=== PATIENT | female | born 1970 | race Caucasian/White ===

== ENCOUNTER 2020-02-09 07:32 | Outpatient (CLI) | payer OTHER, SELFPAY ==
--- NOTE | ~2020-02-09 | MM_ITS ---
EXAMINATION: MM screening jose BI w maryam HISTORY: Screening mammogram TECHNIQUE: Craniocaudal and mediolateral oblique 3-D tomosynthesis images were obtained and synthetic 2-D images were generated. CAD analysis was submitted and interpreted. COMPARISON: 02/06/2019, 02/03/2018, 11/06/2016 bilateral digital screening mammogram examinations BREAST PARENCHYMAL COMPOSITION: There are scattered areas of fibroglandular density. FINDINGS: There is no evidence of suspicious mass, calcification, or architectural distortion to sugg est malignancy in either breast. There has been no suspicious interval change. IMPRESSION: 1. No mammographic evidence of malignancy. 2. Recommend routine screening mammography in one year. BI-RADS Category 1: Negative Reviewed, dictated and finalized at location A.
== END 2020-02-09 07:33 | disposition home or self-care (01) ==
LOC: ANHIMG 07:35
PROVIDERS: PCP Family Medicine; Visit Provider Nurse Practitioner
DX: Z12.31 Encounter for screening mammogram for malignant neoplasm of breast (principal)
CPT/HCPCS: 77063; 77067

== ENCOUNTER 2020-08-12 02:13 | Outpatient (CLI) | payer OTHER, SELFPAY ==
[2020-08-12 18:35] LABS: SARS-CoV-2 RNA PCR Negative
== END 2020-08-12 02:14 | disposition home or self-care (01) ==
LOC: ANHCOVIDDT 02:13
PROVIDERS: PCP Family Medicine; Visit Provider Internal Medicine Gastroenterology
DX: Z01.812 Encounter for preprocedural laboratory examination (principal); Z20.828 Contact with and (suspected) exposure to other viral communicable diseases
CPT/HCPCS: 87635; C9803; U0003

== ENCOUNTER 2020-08-15 00:49 | Day surgery (SDC) | payer OTHER, SELFPAY ==
[2020-08-08 11:01] VITALS: BMI 25.3
[2020-08-15 11:22] VITALS: BP 117/48; PULSE 86; RESP 16; TEMP 36.7; O2SAT 99; BMI 27.8
[2020-08-15] MEDS: LACTATED RINGERS 1,000 ML 150 ML IV CONT (11:42)
--- NOTE | 2020-08-15 12:06 | WPDANESEPPF ---
Anes - Initial Pre Proc Eval Procedure: Operation Date: 08/15/20 12:30 Proposed Procedures p Screening Colonoscopy - Rafael Pisano MD Date/Time: 08/15/20 12:06 Surgeon: Rafael Pisano MD Pre Op Diagnosis: neoplasm screening Patient Data Age: 50 Gender: F Height: 5 ft 5 in Weight: 75.9 kg Last Vital Signs Temp 36.7 C 08/15/20 11:22 Pulse 86 08/15/20 11:22 Resp 16 08/15/20 11:22 BP 117/48 L 08/15/20 11:22 Pulse Ox 99 08/15/20 11:22 Allergies Allergy/AdvReac Type Severity Reaction Status Date / Time Penicillins Allergy Mild Rash Verified 08/15/20 11:21 penicillin V Allergy Unknown Rash Verified 08/15/20 11:21 Home Medications Medication Instructions Recorded Confirmed Type ibuprofen 600 mg tablet 600 mg PO TID 08/07/19 08/15/20 History albuterol sulfate 90 mcg/actuation 2 inhalation INHALATION Q4-6H PRN 11/17/19 08/08/20 Rx aerosol inhaler #8.5 gm sumatriptan succinate 100 mg tablet 100 mg PO ONCE #20 tablet 06/28/20 08/15/20 Rx sodium,potassium,mag sulfates 17.5 354 ml PO .COMPLEX #354 ml 07/09/20 08/08/20 Rx gram-3.13 gram-1.6 gram oral soln bqnlioq-avhmwbttmgopz-ltdydmar 1 tablet PO Q4-6H PRN 08/08/20 08/15/20 History [Excedrin Extra Strength] bisacodyl 5 mg PO ONCE 08/08/20 08/15/20 History phenazopyridine 200 mg PO DAILY PRN 08/08/20 08/08/20 History Patient hx anesthesia problems: none Family hx anesthesia problems: none PMFSH Past Medical History Medical History Allergic rhinitis Asthma Eczema Migraine Surgical History Surgical History History of hysterectomy Social History Social History Smoking status: Never smoker Smoking end date: 08/30/11 Alcohol intake: current Alcohol use details: very rarely Substance use: never Substance use type: does not use Living arrangements: with family Gender identity (if verbalized by the patient): Female Spiritual care concerns: No Anes - Eval Final PreProcedure Day of Procedure 08/15/20 12:06 Patient weight: overweight Heart: regular rate and rhythm Lungs: clear to auscultation Airway: Mallampati scale class II Neurological: alert and oriented Last oral intake: >/= 8 hours ASA classification: II Emergent: no Anesthetic plan: proceed Anesthesia type and monitoring: general GIVS and standard monitoring Informed Consent: The patient's anesthetic plan and its attendant risks and benefits were discussed with the patient/family/POA. Questions were solicited and answers provided to the satisfaction of the patient/family/POA.
--- NOTE | 2020-08-15 12:44 | PM.HPGS ---
History of Present Illness History of Present Illness Consent: Risks, benefits, and alternatives have been discussed and questions answered. Patient agrees to proceed with procedure. Chief complaint: neoplasm screening Narrative: Julissa Christy is a 50 year old female here for screening colonoscopy, last one about 10 years ago. Review of Systems Constitutional: Constitutional: Denies headache(s) and Denies weakness Eyes: Eyes: Denies blurry vision ENT: Reports Normal hearing present, Denies headache(s) and Denies neck pain Cardiovascular: Cardiovascular: Denies chest pain and Denies dyspnea Respiratory: Respiratory: Denies dyspnea Gastrointestinal: Gastrointestinal: Reports no additional gastrointestinal complaints Genitourinary: Genitourinary: Denies dysuria Musculoskeletal: Musculoskeletal: Denies neck pain Integumentary/Breasts: Skin/Breast: Denies dry skin Neurologic: Reports Normal hearing present, Denies headache(s) and Denies weakness Psychiatric: Psychiatric: Denies anxiety Endocrine: Endocrine: Denies change in body appearance Hematologic/Lymphatic: Hematologic/Lymphatic: Denies easy bleeding Allergic/Immunologic: Allergic/Immunologic: Denies urticaria PMFSH Past Medical History Medical History Allergic rhinitis Asthma Eczema Migraine Surgical History Surgical History History of hysterectomy Social History Social History Smoking status: Never smoker Smoking end date: 08/30/11 Alcohol intake: current Alcohol use details: very rarely Substance use: never Substance use type: does not use Living arrangements: with family Gender identity (if verbalized by the patient): Female Spiritual care concerns: No Meds Home Medications and Allergies Home Medications Medication Instructions Recorded Confirmed Type ibuprofen 600 mg tablet 600 mg PO TID 08/07/19 08/15/20 History albuterol sulfate 90 mcg/actuation 2 inhalation INHALATION Q4-6H PRN 11/17/19 08/08/20 Rx aerosol inhaler #8.5 gm sumatriptan succinate 100 mg tablet 100 mg PO ONCE #20 tablet 06/28/20 08/15/20 Rx sodium,potassium,mag sulfates 17.5 354 ml PO .COMPLEX #354 ml 07/09/20 08/08/20 Rx gram-3.13 gram-1.6 gram oral soln ukxdsuf-vxslcniuoadyq-tlinpkvs 1 tablet PO Q4-6H PRN 08/08/20 08/15/20 History [Excedrin Extra Strength] bisacodyl 5 mg PO ONCE 08/08/20 08/15/20 History phenazopyridine 200 mg PO DAILY PRN 08/08/20 08/08/20 History Allergies Allergy/AdvReac Type Severity Reaction Status Date / Time Penicillins Allergy Mild Rash Verified 08/15/20 11:21 penicillin V Allergy Unknown Rash Verified 08/15/20 11:21 Vital Signs Vital Signs - 24 hr 08/15/20 11:22 Temperature 98.0 F Pulse Rate 86 Respiratory Rate 16 Blood Pressure 117/48 L Pulse Oximetry 99 Exam Const: General: comfortable and no acute distress HENMT: General nose exam: Normal nares present Eyes: General: appearance normal, both eyes and all related structures Neck: Neck: no JVD Resp: Auscultation: clear to auscultation bilaterally Cardio: Rate: regular rate Rhythm: regular rhythm GI: Inspection: non-distended GI Palp: Yes Soft to palpation Skin: General skin exam: normal color Neuro: General: gait normal Speech: normal speech Extrem: General: normal to inspection Psych: Mental Status: mental status grossly normal Assessment and Plan Assessment and plan (1) Colon cancer screening: Code(s): Z12.11 - Encounter for screening for malignant neoplasm of colon Status: Acute Assessment and Plan: will proceed with colonoscopy
[2020-08-15 13:10] VITALS: BP 92/43; PULSE 76; RESP 22; O2SAT 99
[2020-08-15 13:20] VITALS: BP 96/58; PULSE 73; RESP 20; O2SAT 100
[2020-08-15 13:30] VITALS: BP 102/58; PULSE 66; RESP 18; O2SAT 100
== END 2020-08-15 13:52 | disposition home or self-care (01) ==
PROVIDERS: PCP Family Medicine; Visit Provider Internal Medicine Gastroenterology
PROC: 0DJD8ZZ Inspection of Lower Intestinal Tract, Via Natural or Artificial Opening Endoscopic (ICD-10-PCS; CPT 45378; principal; 2020-08-15 12:30)
DX: Z12.11 Encounter for screening for malignant neoplasm of colon (principal); D12.0 Benign neoplasm of cecum; K64.8 Other hemorrhoids; Z79.82 Long term (current) use of aspirin; Z79.51 Long term (current) use of inhaled steroids; J45.909 Unspecified asthma, uncomplicated; L30.9 Dermatitis, unspecified; G43.909 Migraine, unspecified, not intractable, without status migrainosus
CPT/HCPCS: 45381; 45385; 88305; J2704; J7120

== ENCOUNTER 2021-01-17 11:26 | Emergency (ER) | payer OTHER, SELFPAY ==
[2021-01-17] VITALS (15 sets, daily range): BP systolic 114–130; BP diastolic 59–78; PULSE 65–89; RESP 13–18; TEMP 36.7; O2SAT 98–100
--- NOTE | ~2021-01-17 | XR_ITS ---
EXAMINATION: XR chest 2V DATE: 01/17/2021 12:15 INDICATION: Left chest pain. Shortness of breath with inspiration. TECHNIQUE: Frontal and lateral views of the chest were obtained. COMPARISON: None. FINDINGS: A calcified right lung nodule and calcified right hilar lymph nodes are consistent with old granulomatous disease. No pleural effusion or pneumothorax. The heart size is normal. IMPRESSION: 1. No acute cardiopulmonary disease. Reviewed, dictated and finalized at location A.
--- NOTE | 2021-01-17 11:53 | ECG_ITS ---
Measurements Intervals [place] Rate: 71 P: 49 CA: 155 QRS: 65 QRSD: 82 T: 55 QT: 371 QTc: 404 Interpretive Statements SINUS RHYTHM NORMAL ECG Electronically Signed On 01-17-2021 11:59:12 CDT by Jona Bates D.O.
[2021-01-17] MEDS: ASPIRIN 81 MG CHEWABLE TABLET 324 MG PO (12:01)
[2021-01-17 12:07] LABS: Basophils Absolute Auto 0.1 K/mm3 (0.0-0.1); Basophils Percent Auto 0.8 % (0.2-1.2); Eosinophils Absolute Auto 0.1 K/mm3 (0-0.3); Eosinophils Percent Auto 1.5 % (0-4.4); Hemoglobin 11.5 g/dL (12.0-15.0); Immature Granulocyte Absolute 0.02 K/mm3 (0.00-0.031); Immature Granulocyte Percent A 0.3 % (0-0.5); Lymphocytes Absolute Auto 1.98 K/mm3 (0.9-3.2); Lymphocytes Percent Auto 33.2 % (18.3-44.2); Mean Corpuscular HGB Conc 33.8 g/dl (32-36); Mean Corpuscular Hemoglobin 32.6 pg (26-34); Mean Corpuscular Volume 96.3 fl (80-100); Mean Platelet Volume 10.5 fl (7.4-10.4); Monocytes Absolute Auto 0.4 K/mm3 (0.1-0.6); Monocytes Percent Auto 6.5 % (2.6-8.5); Neutrophils Absolute Auto 3.4 K/mm3 (1.3-6.7); Neutrophils Percent Auto 57.7 % (45.5-73.1); Platelet Count Result 270 k/mm3 (150-375); Red Blood Count 3.53 M/mm3 (4.2-5.4); Red Cell Distribution Width 12.4 % (11.5-14.5)
[2021-01-17 12:17] LABS: INR 0.9; Prothrombin Time 13.1 Seconds (11.1-14.7)
[2021-01-17 12:18] LABS: Partial Thromboplastin Time 24.3 SECONDS (22.3-36.8)
[2021-01-17 12:34] LABS: Anion Gap 4 mmol/L (8-16); Blood Urea Nitrogen 15 mg/dL (7-17); Calcium 8.9 mg/dL (8.4-10.2); Carbon Dioxide 26 mmol/L (22-30); Chloride 110 mmol/L (98-107); Estimated CRCL calculation 86 ml/min; Estimated Glomerular Filt Rate > 60; Glucose 112 mg/dL (65-105); Potassium 3.6 mmol/L (3.4-5.0); Sodium 140 mmol/L (137-145)
[2021-01-17 12:40] LABS: Troponin I < 0.012 ng/mL (0.000-0.034)
--- NOTE | 2021-01-17 13:12 | ED.CHESTPAIN ---
HPI - Chest Pain General Chief Complaint: Chest Pain Stated Complaint: Left chest pain with burning Time Seen by Provider: 01/17/21 12:19 Source: patient Mode of arrival: ambulatory Limitations: no limitations History of Present Illness HPI narrative: 50-year-old female She has a history of seronegative RA Today she is concerned about pain that she has been having in the left chest and around the left breast for couple of days which has become more of a burning discomfort today Unclear what initially triggered the pain It is not particularly worse with activity however deep breaths and some movements bother her more She does not have a cough or a fever, she is not short of breath, no diaphoresis, no GI symptoms, no leg swelling or pain, no rash Related Data Home Medications Medication Instructions Recorded Confirmed ibuprofen 600 mg tablet 600 mg PO TID 08/07/19 12/31/20 ahcbpgq-gvsvibkczkfld-ieomvysk 1 tablet PO Q4-6H PRN 08/08/20 12/31/20 [Excedrin Extra Strength] bisacodyl 5 mg PO ONCE 08/08/20 12/31/20 phenazopyridine 200 mg PO DAILY PRN 08/08/20 12/31/20 Allergies Allergy/AdvReac Type Severity Reaction Status Date / Time Penicillins Allergy Mild Rash Verified 12/31/20 08:29 penicillin V Allergy Unknown Rash Verified 12/31/20 08:29 Review of Systems Review of Systems: All systems reviewed & are unremarkable except as noted in HPI and below Constitutional: Constitutional: Reports no additional constitutional complaints, Denies chills, Denies fever(s) and Denies headache(s) Eyes: Eyes: Reports no additional eye complaints and Denies change in vision ENT: Denies headache(s) and Denies sore throat Cardiovascular: Cardiovascular: Reports chest pain, Denies radiating jaw, neck or arm pain and Denies dyspnea Respiratory: Respiratory: Denies cough and Denies dyspnea Gastrointestinal: Gastrointestinal: Denies abdominal pain, Denies diarrhea and Denies vomiting Genitourinary: Genitourinary: Denies urinary frequency and Denies dysuria Musculoskeletal: Musculoskeletal: Denies deformity, Reports arthralgias, Denies joint swelling and Denies numbness Integumentary/Breasts: Skin/Breast: Reports erythema (Hands are stained red from using [employer] to dye her daughters hair), Denies rash and Denies wounds Neurologic: Denies headache(s), Denies focal weakness and Denies numbness Psychiatric: Psychiatric: Reports no additional psychiatric complaints Endocrine: Endocrine: Reports no additional endocrine complaints Hematologic/Lymphatic: Hematologic/Lymphatic: Reports no additional hematologic/lymphatic complaints Allergic/Immunologic: Allergic/Immunologic: Reports no additional allergic/immunologic complaints [facility] Past Medical History Medical History (Updated 01/17/21 @ 15:36 by Jack Bedoya MD) Adenomatous colon polyp Allergic rhinitis Asthma Bilateral knee pain Colon cancer screening Degenerative joint disease of cervical and lumbar spine Eczema History of colonic polyps Inflammatory arthritis Kidney stone Migraine Seronegative rheumatoid arthritis Surgical History Surgical History History of hysterectomy Social History Social History Years smoked: 4 Smoking status: Never smoker Tobacco type: cigarettes Second hand tobacco smoke exposure: No Smoking end date: 08/30/11 Alcohol intake: current Substance use: never Substance use type: does not use Gender identity (if verbalized by the patient): Female Spiritual care concerns: No Exam Const: General: cooperative, no acute distress and alert Orientation/consciousness: patient oriented x3 (alert) HENMT: Head: normal to inspection, normocephalic and atraumatic Ears: external ears normal General nose exam: no epistaxis Eyes: Conjunctivae: conjunctivae normal EOM: EOMs intact bilaterally Neck: Neck: normal
--- NOTE | 2021-01-17 13:19 | PC.NURSE ---
Called hematology and spoke to Rebekah to order D-Dimer 13:17
[2021-01-17] MEDS: KETOROLAC 30 MG/ML VIAL (*BKC) IV PUSH (13:33)
[2021-01-17 13:42] LABS: D Dimer 0.27 ug/mL (<0.48)
[2021-01-17 15:58] LABS: Troponin I < 0.012 ng/mL (0.000-0.034)
== END 2021-01-17 16:22 | disposition home or self-care (01) ==
PROVIDERS: Family Medicine; Emergency Provider Emergency Medicine; PCP Family Medicine
DX: R07.89 Other chest pain (principal); M06.00 Rheumatoid arthritis without rheumatoid factor, unspecified site; Z86.010 Personal history of colon polyps; J45.909 Unspecified asthma, uncomplicated; Z87.442 Personal history of urinary calculi; M47.812 Spondylosis without myelopathy or radiculopathy, cervical region; M47.816 Spondylosis without myelopathy or radiculopathy, lumbar region; Z87.891 Personal history of nicotine dependence
CPT/HCPCS: 36415; 71046; 80048; 84484; 85025; 85380; 85610; 85730; 93005; 96374; 99284; A9270; J1885

== ENCOUNTER 2021-03-10 06:35 | Outpatient (CLI) | payer OTHER, SELFPAY ==
--- NOTE | ~2021-03-10 | MR_ITS ---
EXAMINATION: MR hand RT wo/w con, MR hand LT wo/w con DATE: 03/10/2021 09:08 INDICATION: Rheumatoid arthritis with joint pain at the bilateral hands. TECHNIQUE: 1. Magnetic resonance imaging (MRI) of the right hand was performed without and with 13 mL Multihance intravenous contrast to include the metacarpals and digits but excluding portions of the proximal ca rpal row. Sequences included axial, sagittal and coronal T1-weighted FSE and T2-weighted FS FSE, axia l T1-weighted FS FSE and postcontrast axial and coronal T1-weighted FS FSE. 2. MRI of the left hand was performed without and with 13 mL MultiHance intravenous contrast utilizin g the identical contrast bolus. Sequences included axial, sagittal and coronal T1-weighted FSE and T2 -weighted FS FSE, axial T1-weighted FS FSE and postcontrast axial and coronal T1-weighted FS FSE. COMPARISON: None FINDINGS: Bone alignment is normal at both hands. Normal marrow signal throughout. No fracture or pathologic ma rrow replacing process. Joint spaces are normal with no erosions or joint effusions/synovitis to sugg est an inflammatory arthritis. The collateral ligament complex at the metacarpophalangeal and interph alangeal joints are normal. The flexor and extensor tendons are normal with no tenosynovitis. Intrins ic musculature of the bilateral hands are normal. IMPRESSION: 1. Normal study. No erosions or abnormal enhancing synovitis/tenosynovitis to suggest an inflammatory arthritis such as rheumatoid. Reviewed, dictated and finalized at location A. IMPRESSION: 1. Normal study. No erosions or abnormal enhancing synovitis/tenosynovitis to s uggest an inflammatory arthritis such as rheumatoid.
[2021-03-10 07:19] LABS: Estimated Glomerular Filt Rate > 60
== END 2021-03-10 06:36 | disposition home or self-care (01) ==
LOC: ANHIMG 06:39
PROVIDERS: PCP Family Medicine; Visit Provider Internal Medicine
DX: M06.9 Rheumatoid arthritis, unspecified (principal)
CPT/HCPCS: 73220; A9577

== ENCOUNTER 2021-03-12 07:47 | Outpatient (CLI) | payer OTHER, SELFPAY ==
--- NOTE | ~2021-03-12 | MM_ITS ---
EXAMINATION: MM screening [facility] BI w maryam HISTORY: Screening mammogram TECHNIQUE: Craniocaudal and mediolateral oblique 3-D tomosynthesis images were obtained and synthetic 2-D images were generated. CAD analysis was submitted and interpreted. COMPARISON: 02/09/2020, 02/06/2019, 02/03/2018 BREAST PARENCHYMAL COMPOSITION: There are scattered areas of fibroglandular density. FINDINGS: There is no evidence of suspicious mass, calcification, or architectural distortion to sugg est malignancy in either breast. There has been no suspicious interval change. IMPRESSION: 1. No mammographic evidence of malignancy. 2. Recommend routine screening mammography in one year. BI-RADS Category 1: Negative Reviewed, dictated and finalized at location A.
== END 2021-03-12 07:48 | disposition home or self-care (01) ==
PROVIDERS: PCP Family Medicine; Visit Provider Nurse Practitioner
DX: Z12.31 Encounter for screening mammogram for malignant neoplasm of breast (principal)
CPT/HCPCS: 77063; 77067

== ENCOUNTER 2021-09-28 11:52 | Outpatient (CLI) | payer OTHER, SELFPAY ==
--- NOTE | ~2021-09-28 | MR_ITS ---
EXAMINATION: MR brain/brain stem wo con DATE: 09/28/2021 12:38 INDICATION: Migraine headache, unspecified, not intractable, without status migrainosus. TECHNIQUE: Magnetic resonance imaging (MRI) of the brain and brainstem was performed without intraven ous contrast. Sequences included sagittal and axial T1-weighted FSE, axial diffusion-weighted FS EPI, axial T2*-weighted GRE, axial T2-weighted FLAIR Propeller, and axial T2-weighted Propeller. Apparent diffusion coefficient (ADC) maps were created. COMPARISON: Brain MRI 03/10/2011 FINDINGS: There is no intracranial hemorrhage, acute infarction, or abnormal intracranial mass lesion . The ventricles are normal in size. There is a mucous retention cyst in left maxillary sinus. The or bits are normal. The mastoid air cells are normal. IMPRESSION: 1. Normal brain. Reviewed, dictated and finalized at location A. UP IMPRESSION: 1. Normal brain.
== END 2021-09-28 11:53 | disposition home or self-care (01) ==
PROVIDERS: PCP Family Medicine; Visit Provider Family Medicine
DX: G43.909 Migraine, unspecified, not intractable, without status migrainosus (principal); G89.29 Other chronic pain
CPT/HCPCS: 70551

== ENCOUNTER 2023-04-13 14:34 | Outpatient (CLI) | payer OTHER, SELFPAY ==
--- NOTE | ~2023-04-13 | CT_ITS ---
EXAMINATION: CT abdomen pelvis wo con DATE: 04/13/2023 15:20 INDICATION: Personal history of urinary calculi. Right flank pain. TECHNIQUE: Computed tomography (CT) of the abdomen and pelvis was performed without intravenous contr ast. Automated exposure control and iterative reconstruction technique were employed. The dose-length product was 213.26 mGy-cm. COMPARISON: CT abdomen and pelvis 02/14/2019 FINDINGS: The visualized portions of the lung bases demonstrate mild atelectasis. No pleural effusion . The heart size is normal. No pericardial effusion. There are cysts in the liver measuring up to 2.7 cm. The gallbladder is normal. Calcifications in the spleen are consistent with old granulomatous di sease. The pancreas, adrenal glands, and kidneys are normal. There are no dilated loops of bowel. The appendix is normal. There are no pathologically enlarged lymph nodes. There is no ascites. There is mild thoracic and lumbar spondylosis. IMPRESSION: 1. No urolithiasis. Reviewed, dictated and finalized at location A. IMPRESSION: 1. No urolithiasis.
== END 2023-04-13 14:35 | disposition home or self-care (01) ==
PROVIDERS: PCP Family Medicine; Visit Provider Physician Assistant
DX: Z87.442 Personal history of urinary calculi (principal); N39.0 Urinary tract infection, site not specified; R10.9 Unspecified abdominal pain; M54.50 Low back pain, unspecified
CPT/HCPCS: 74176

== ENCOUNTER 2023-06-28 08:00 | Outpatient (CLI) | payer OTHER, SELFPAY ==
--- NOTE | ~2023-06-28 | CT_ITS ---
EXAMINATION: CT abdomen pelvis wo/w con DATE: 06/28/2023 09:04 INDICATION: Left ureteral stone TECHNIQUE: Computed tomography (CT) of the abdomen and pelvis was performed without and subsequently with 130 CC Omnipaque 350 intravenous contrast. Automated exposure control and iterative reconstructi on technique were employed. Exam dose: 1294.39 mGy-cm total exam DLP. COMPARISON: 04/13/2023 CT abdomen pelvis noncontrast examination FINDINGS: Minimal discoid atelectasis at the lung bases. Calcified right lower lobe pulmonary granulo ma. There are multiple calcified splenic granulomas, consistent with old granulomatous disease. Normal heart size. No pericardial or pleural effusion. There are multiple hepatic cysts, the largest approximately 2.6 cm. The gallbladder appears normal. N o bile duct or pancreatic duct dilatation. No pancreatic mass lesion or calcification. No splenic mas s lesion or splenomegaly. Normal morphology of the adrenal glands. No urinary tract calculus or hydroureteronephrosis. 4 mm and 4.5 mm left renal cysts. No suspicious r enal mass lesion is evident. No filling defect of the renal collecting systems, ureters or urinary bl adder is noted on the postcontrast images. Bilateral ureteral jets. Normal caliber of the abdominal aorta. No intraperitoneal or retroperitoneal or pelvic mass lesion or adenopathy or ascites. Normal appendix. Minimal colonic diverticulosis. No CT evidence of diverticulitis. No bowel obstructi on, bowel wall thickening, pneumatosis or intraperitoneal free air. The urinary bladder is unremarkable. Status post hysterectomy. Small fat-containing umbilical hernia. No suspicious osteolytic or osteoblastic lesions are noted. IMPRESSION: Multiple hepatic cysts Left renal small cysts Minimal colonic diverticulosis Normal appendix Status post hysterectomy Reviewed, dictated and finalized at Location A. Reviewed, dictated and finalized at location B.
== END 2023-06-28 08:01 | disposition home or self-care (01) ==
PROVIDERS: PCP Family Medicine; Visit Provider Urology
DX: N20.1 Calculus of ureter (principal); K76.89 Other specified diseases of liver; N28.1 Cyst of kidney, acquired; Z90.49 Acquired absence of other specified parts of digestive tract
CPT/HCPCS: 74178; Q9967

== ENCOUNTER 2023-07-13 00:49 | Day surgery (SDC) | payer OTHER, SELFPAY ==
--- NOTE | 2023-07-02 08:37 | PC.NURSE ---
called pt to go over her colon instructions and her med hx. she states her son was just admitted to [facility] so she will call back when she is able. reassured her that she can call back anytime or reschedule as needed.
[2023-07-05 12:06] VITALS: BMI 25.8
--- NOTE | 2023-07-09 10:32 | SUR.PREOP ---
Patient called regarding upcoming procedure. Reviewed preop instructions, appointment times, and procedure prep.
[2023-07-13 07:17] VITALS: BP 119/62; PULSE 80; RESP 16; TEMP 36.4; O2SAT 100; BMI 28.5
[2023-07-13] MEDS: LACTATED RINGERS 1,000 ML 150 ML IV CONT (07:27)
--- NOTE | 2023-07-13 08:09 | WPDANESEPPF ---
Anes - Initial Pre Proc Eval Procedure: Operation Date: 07/13/23 08:30 Proposed Procedures p Colonoscopy - Rafael Pisano MD Date/Time: 07/13/23 08:09 Surgeon: Rafael Pisano MD Pre Op Diagnosis: hx of colon polyps Patient Data Age: 53 Gender: F Height: 1.63 m Weight: 75.5 kg Last Vital Signs Temp 97.5 F L 07/13/23 07:17 Pulse 80 07/13/23 07:17 Resp 16 07/13/23 07:17 BP 119/62 07/13/23 07:17 Pulse Ox 100 07/13/23 07:17 O2 Del Method Room Air 07/13/23 07:17 Allergies Allergy/AdvReac Type Severity Reaction Status Date / Time Penicillins Allergy Mild Rash Verified 07/13/23 07:16 sulfamethoxazole Allergy Mild Rash Verified 07/13/23 07:16 [From Bactrim] trimethoprim [From Bactrim] Allergy Mild Rash Verified 07/13/23 07:16 penicillin V Allergy Unknown Rash Verified 07/13/23 07:16 Home Medications Medication Instructions Recorded Confirmed Type bisacodyl 5 mg tablet 5 mg PO DAILY PRN constipation #30 11/17/21 07/13/23 Rx tabs phenazopyridine 200 mg tablet 200 mg PO Q8H PRN .cystitis #30 03/18/22 07/13/23 Rx tabs rimegepant 75 mg disintegrating 75 mg PO ONCE PRN migraine 03/18/22 07/13/23 Rx tablet (Nurtec ODT) headache #16 tabs onabotulinumtoxinA 100 unit See Rx Instructions .Route .COMPLEX 07/05/23 07/13/23 History solution for injection (Botox) phentermine 30 mg capsule 30 mg PO DAILY PRN Appitite control 07/05/23 07/13/23 History Patient hx anesthesia problems: none Family hx anesthesia problems: none Results Review: All pre-operative results and documents have been reviewed as part of the pre-operative evaluation. [facility] Past Medical History Medical History Adenomatous colon polyp Allergic rhinitis Asthma Bilateral knee pain Chronic insomnia Colon cancer screening Degenerative joint disease of cervical and lumbar spine Eczema History of colonic polyps Inflammatory arthritis Kidney stone Migraine Seronegative rheumatoid arthritis Surgical History Surgical History History of hysterectomy Social History Social History Social History: Years smoked: 5 Smoking status: Former smoker Tobacco type: cigarettes Second hand tobacco smoke exposure: No Smoking end date: 08/30/11 Alcohol intake: current Alcohol use details: yearly Substance use: never Substance use type: does not use Lack of Transportation: No Lack of Food: Never True Current Housing: I Have Housing Concerned About Future Housing: No Difficulty Paying Gas/Electric Bills: No Difficulty Paying for Meds: No Currently Unemployed: No Education: Decline to Answer Difficulty w/ Childcare or Family Care: No Living arrangements: other Additional living arrangements comments: with Occupation/Education: occupation Gender identity (if verbalized by the patient): Female Sexual Orientation (if Verbalized by the Patient): Straight or Heterosexual Spiritual care concerns: No Anes - Eval Final PreProcedure Day of Procedure 07/13/23 08:09 Patient weight: normal Heart: regular rate and rhythm Lungs: clear to auscultation Airway: Mallampati scale class II Neurological: alert and oriented Last oral intake: >/= 8 hours ASA classification: II Emergent: no Anesthetic plan: proceed Anesthesia type and monitoring: general GIVS and standard monitoring Results Review: All pre-operative results and documents have been reviewed as part of the pre-operative evaluation. Informed Consent: The patient's anesthetic plan and its attendant risks and benefits were discussed with the patient/family/POA. Questions were solicited and answers provided to the satisfaction of the patient/family/POA.
--- NOTE | 2023-07-13 08:14 | PM.HPGS ---
History of Present Illness History of Present Illness Consent: Risks, benefits, and alternatives have been discussed and questions answered. Patient agrees to proceed with procedure. Chief complaint: hx of colon polyps Narrative: Julissa Christy is a 53 year old female with colon polyp in 2019 Review of Systems Constitutional: Constitutional: Denies headache(s) and Denies weakness Eyes: Eyes: Denies blurry vision ENT: Reports Normal hearing present, Denies headache(s) and Denies neck pain Cardiovascular: Cardiovascular: Denies chest pain and Denies dyspnea Respiratory: Respiratory: Denies dyspnea Gastrointestinal: Gastrointestinal: Reports no additional gastrointestinal complaints Genitourinary: Genitourinary: Denies dysuria Musculoskeletal: Musculoskeletal: Denies neck pain Integumentary/Breasts: Skin/Breast: Denies dry skin Neurologic: Reports Normal hearing present, Denies headache(s) and Denies weakness Psychiatric: Psychiatric: Denies anxiety Endocrine: Endocrine: Denies change in body appearance Hematologic/Lymphatic: Hematologic/Lymphatic: Denies easy bleeding Allergic/Immunologic: Allergic/Immunologic: Denies urticaria PMFSH Past Medical History Medical History Adenomatous colon polyp Allergic rhinitis Asthma Bilateral knee pain Chronic insomnia Colon cancer screening Degenerative joint disease of cervical and lumbar spine Eczema History of colonic polyps Inflammatory arthritis Kidney stone Migraine Seronegative rheumatoid arthritis Surgical History Surgical History History of hysterectomy Social History Social History Social History: Years smoked: 5 Smoking status: Former smoker Tobacco type: cigarettes Second hand tobacco smoke exposure: No Smoking end date: 08/30/11 Alcohol intake: current Alcohol use details: yearly Substance use: never Substance use type: does not use Lack of Transportation: No Lack of Food: Never True Current Housing: I Have Housing Concerned About Future Housing: No Difficulty Paying Gas/Electric Bills: No Difficulty Paying for Meds: No Currently Unemployed: No Education: Decline to Answer Difficulty w/ Childcare or Family Care: No Living arrangements: other Additional living arrangements comments: with Occupation/Education: occupation Gender identity (if verbalized by the patient): Female Sexual Orientation (if Verbalized by the Patient): Straight or Heterosexual Spiritual care concerns: No Meds Home Medications and Allergies Home Medications Medication Instructions Recorded Confirmed Type bisacodyl 5 mg tablet 5 mg PO DAILY PRN constipation #30 11/17/21 07/13/23 Rx tabs phenazopyridine 200 mg tablet 200 mg PO Q8H PRN .cystitis #30 03/18/22 07/13/23 Rx tabs rimegepant 75 mg disintegrating 75 mg PO ONCE PRN migraine 03/18/22 07/13/23 Rx tablet (Nurtec ODT) headache #16 tabs onabotulinumtoxinA 100 unit See Rx Instructions .Route .COMPLEX 07/05/23 07/13/23 History solution for injection (Botox) phentermine 30 mg capsule 30 mg PO DAILY PRN Appitite control 07/05/23 07/13/23 History Allergies Allergy/AdvReac Type Severity Reaction Status Date / Time Penicillins Allergy Mild Rash Verified 07/13/23 07:16 sulfamethoxazole Allergy Mild Rash Verified 07/13/23 07:16 [From Bactrim] trimethoprim [From Bactrim] Allergy Mild Rash Verified 07/13/23 07:16 penicillin V Allergy Unknown Rash Verified 07/13/23 07:16 Vital Signs Vital Signs - 24 hr 07/13/23 07:17 Temperature 97.5 F L Pulse Rate 80 Respiratory Rate 16 Blood Pressure 119/62 Pulse Oximetry 100 Oxygen Delivery Room Air Exam Const: General: comfortable and no acute distress HENMT: Face/Nose/Sinus: Normal nares present Eyes:
[2023-07-13 08:35] VITALS: BP 96/64; PULSE 74; RESP 18; O2SAT 100
[2023-07-13 08:45] VITALS: BP 116/78; PULSE 84; RESP 17; O2SAT 100
[2023-07-13 08:49] VITALS: BP 116/77; PULSE 69; RESP 20; O2SAT 100
== END 2023-07-13 09:00 | disposition home or self-care (01) ==
PROVIDERS: PCP Family Medicine; Visit Provider Internal Medicine Gastroenterology
PROC: 0DJD8ZZ Inspection of Lower Intestinal Tract, Via Natural or Artificial Opening Endoscopic (ICD-10-PCS; CPT 45378; principal; 2023-07-13 08:30)
DX: Z12.11 Encounter for screening for malignant neoplasm of colon (principal); D12.0 Benign neoplasm of cecum; K64.8 Other hemorrhoids; M06.00 Rheumatoid arthritis without rheumatoid factor, unspecified site; Z87.891 Personal history of nicotine dependence
CPT/HCPCS: 45385; 88305; J2704; J7120

== ENCOUNTER 2023-08-11 07:32 | Outpatient (CLI) | payer OTHER, SELFPAY ==
--- NOTE | ~2023-08-11 | MM_ITS ---
EXAMINATION: MM screening jose BI w maryam HISTORY: Screening TECHNIQUE: Craniocaudal and mediolateral oblique 3-D tomosynthesis images were obtained and synthetic 2-D images were generated. CAD analysis was submitted and interpreted. COMPARISON: Comparison to multiple prior studies sequentially, with oldest reviewed study dated 10/12. BREAST PARENCHYMAL COMPOSITION: Breast composed of scattered areas of fibroglandular density FINDINGS: There is no evidence of suspicious mass, calcification, or architectural distortion to sugg est malignancy in either breast. There has been no suspicious interval change. IMPRESSION: 1. No mammographic evidence of malignancy. 2. Recommend routine screening mammography in one year. BI-RADS Category 1: Negative Reviewed, dictated and finalized at location A. [facility]
== END 2023-08-11 07:33 | disposition home or self-care (01) ==
LOC: ANHIMG 07:34
PROVIDERS: PCP Family Medicine; Visit Provider Nurse Practitioner
DX: Z12.31 Encounter for screening mammogram for malignant neoplasm of breast (principal)
CPT/HCPCS: 77063; 77067

== ENCOUNTER 2023-11-29 10:10 | Outpatient (CLI) | payer OTHER, SELFPAY ==
--- NOTE | ~2023-11-29 | MMUS_ITS ---
EXAMINATION: MM diagnostic jose LT w maryam, US breast LT limited HISTORY: Left breast lump. TECHNIQUE: Additional 3-D tomosynthesis images of the left breast were performed and synthetic 2-D im ages were generated. CAD analysis was submitted and interpreted. High resolution Limited left breast ultrasound was performed. COMPARISON: Comparison to multiple prior studies sequentially, with oldest reviewed study dated 02/08. BREAST PARENCHYMAL COMPOSITION: Not dense: There are scattered areas of fibroglandular density. FINDINGS: MAMMOGRAPHIC FINDINGS: The left breast is stable. No suspicious masses, calcifications or architectural distortion to sugges t malignancy. ULTRASOUND: Limited left breast ultrasound: No discrete solid or cystic mass. Mildly prominent vessel present in the area of palpable concern at 1:00, 3 cm from the nipple. IMPRESSION: 1. No evidence for malignancy in the left breast. Benign findings. 2. Routine yearly screening mammogram and regular clinical breast examination are recommended. BI-RADS Category 2: Benign finding(s). Reviewed, dictated and finalized at location A. IMPRESSION: 1. No evidence for malignancy in the left breast. Benign findings. 2. Routine yearly screening mammogram and regular clinical breast examination a re recommended. BI-RADS Category 2: Benign finding(s).
== END 2023-11-29 10:11 | disposition home or self-care (01) ==
LOC: ANHIMG 10:11
PROVIDERS: PCP Family Medicine; Visit Provider Nurse Practitioner
DX: N63.20 Unspecified lump in the left breast, unspecified quadrant (principal)
CPT/HCPCS: 76642; 77061; 77065; G0279

== ENCOUNTER 2023-12-01 16:33 | Emergency (ER) | payer OTHER, SELFPAY ==
--- NOTE | ~2023-12-01 | XR_ITS ---
EXAMINATION: XR chest 2V DATE: 12/01/2023 17:12 INDICATION: Shortness of breath. TECHNIQUE: Frontal and lateral views of the chest were obtained. COMPARISON: None. FINDINGS: A calcified right lung nodule and calcified right hilar lymph nodes are consistent with old granulomatous disease. No pleural effusion or pneumothorax. The heart size is normal. IMPRESSION: 1. No acute cardiopulmonary disease. Reviewed, dictated and finalized at location A.
--- NOTE | 2023-12-01 16:37 | ECG_ITS ---
Measurements Intervals [place] Rate: 69 P: 48 AR: 165 QRS: 53 QRSD: 82 T: 46 QT: 369 QTc: 395 Interpretive Statements SINUS RHYTHM COMPARED TO ECG 01/17/2021 11:34:34 NO SIGNIFICANT CHANGES Electronically Signed On 12-02-2023 10:58:45 CDT by Carmela Soriano M.D.
[2023-12-01 16:46] VITALS: BP 147/77; PULSE 82; RESP 19; TEMP 36.2; O2SAT 100
[2023-12-01 17:05] LABS: Basophils Absolute Auto 0.1 K/mm3 (0.0-0.1); Basophils Percent Auto 0.9 % (0.2-1.2); Eosinophils Absolute Auto 0.1 K/mm3 (0-0.3); Eosinophils Percent Auto 1.8 % (0-4.4); Hematocrit 37.2 % (37.0-47.0); Hemoglobin 12.4 g/dL (12.0-15.0); Immature Granulocyte Absolute 0.02 K/mm3 (0.00-0.031); Immature Granulocyte Percent A 0.4 % (0-0.5); Lymphocytes Absolute Auto 1.86 K/mm3 (0.9-3.2); Lymphocytes Percent Auto 32.9 % (18.3-44.2); Mean Corpuscular HGB Conc 33.3 g/dl (32-36); Mean Corpuscular Hemoglobin 32.3 pg (26-34); Mean Corpuscular Volume 96.9 fl (80-100); Mean Platelet Volume 10.6 fl (7.4-10.4); Monocytes Absolute Auto 0.3 K/mm3 (0.1-0.6); Neutrophils Absolute Auto 3.3 K/mm3 (1.3-6.7); Platelet Count Result 270 k/mm3 (150-375); Red Blood Count 3.84 M/mm3 (4.2-5.4); Red Cell Distribution Width 12.3 % (11.5-14.5); White Blood Count 5.7 K/mm3 (4.5-10.0)
[2023-12-01 17:15] LABS: Alanine Aminotransferase 34 U/L (6-35); Albumin Level 4.5 g/dL (3.5-5.1); Alkaline Phosphatase 77 U/L (38-126); Anion Gap 4 mmol/L (4-12); Aspartate Amino Transferase 41 U/L (14-36); Bilirubin,Total 0.6 mg/dL (0.2-1.3); Blood Urea Nitrogen 15 mg/dL (7-17); Calcium 9.1 mg/dL (8.4-10.2); Carbon Dioxide 29 mmol/L (22-30); Chloride 103 mmol/L (98-107); Estimated CRCL calculation 56 ml/min; Estimated Glomerular Filt Rate > 60; Glucose 98 mg/dL (65-110); Potassium 3.9 mmol/L (3.4-5.0); Sodium 136 mmol/L (137-145)
[2023-12-01 17:17] LABS: INR 0.9; Prothrombin Time 12.5 Seconds (11.1-14.7)
[2023-12-01 17:18] LABS: Partial Thromboplastin Time 25.1 Seconds (22.3-36.8)
[2023-12-01 17:26] LABS: NT Pro B Type Natriuretic Pept 56 pg/mL (19.9-100); Troponin I < 0.012 ng/mL (0.000-0.034)
--- NOTE | 2023-12-01 17:47 | ED.GENADULT ---
HPI - General Adult General Chief complaint: Unspecified <Pari Horner December, BASEBALL WINDER - Last Filed: 12/01/23 17:53> Stated complaint: bilateral extremity edema <Pari Horner December, BASEBALL WINDER - Last Filed: 12/01/23 17:53> Time Seen by Provider: 12/01/23 17:47 <Pari Horner December, BASEBALL WINDER - Last Filed: 12/01/23 17:53> Focused HPI: Julissa Christy is a 53 y/o female who presents today with reports that for about a month she has been having swelling to both of her ankles, she has also been having small and large joint pain that has even woken her up out of her sleep. She has also had some increased SOB worse on exertion and feels that there is fluid from her mid chest up to her throat that she keeps taking Tums to help but it won't go away. She states that she has been using her inhaler to help her SOB but doesn't seem to help GENERAL: Well-appearing, well-nourished, and in no acute distress. HEAD: Normocephalic, atraumatic. CHEST: Clear to auscultation. ?No respiratory distress. HEART: Regular rate and rhythm.? NEURO: ?Alert and oriented x3. Patient screened in triage and initial orders placed.? ?Additional care and disposition to be based upon?diagnostic testing and treatment. <Pari Horner December, BASEBALL WINDER - Last Filed: 12/01/23 17:53> Focused HPI: Julissa Christy is a 53 y/o female who presents today with reports that for about a month she has been having swelling to both of her ankles, she has also been having small and large joint pain that has even woken her up out of her sleep. She has also had some increased SOB worse on exertion and feels that there is fluid from her mid chest up to her throat that she keeps taking Tums to help but it won't go away. She states that she has been using her inhaler to help her SOB but doesn't seem to help. Additional history obtained from patient after my evaluation. Patient states that the joint pain that she has been having is in her bilateral hands, fingers, toes, knees and hips. She denies any history of osteoarthritis or rheumatoid arthritis but is unsure of any family history since she was adopted. Patient admits that the joint pain is symmetrical. She denies any history of autoimmune disease. GENERAL: Well-appearing, well-nourished, and in no acute distress. HEAD: Normocephalic, atraumatic. CHEST: Clear to auscultation. ?No respiratory distress. HEART: Regular rate and rhythm.? NEURO: ?Alert and oriented x3. Patient screened in triage and initial orders placed.? ?Additional care and disposition to be based upon?diagnostic testing and treatment. <Graeme Paula MD - Last Filed: 12/01/23 21:21> Related Data Home medications: Home Medications Medication Instructions Recorded Confirmed onabotulinumtoxinA 100 unit See Rx Instructions .Route .COMPLEX 07/05/23 07/13/23 solution for injection (Botox) <Pari Rider, BASEBALL WINDER - Last Filed: 12/01/23 17:53> Allergies/adverse reactions: Allergies Allergy/AdvReac Type Severity Reaction Status Date / Time Penicillins Allergy Mild Rash Verified 12/01/23 18:50 sulfamethoxazole Allergy Mild Rash Verified 12/01/23 18:50 [From Bactrim] trimethoprim [From Bactrim] Allergy Mild Rash Verified 12/01/23 18:50 penicillin V Allergy Unknown Rash Verified 12/01/23 18:50 <Pari Rider, BASEBALL WINDER - Last Filed: 12/01/23 17:53> Review of Systems Review of Systems: All systems are reviewed and are negative unless stated otherwise in the HPI. <Graeme Paula MD - Last Filed: 12/01/23 21:21> PMFSH Past Medical History Medical History: Medical History Adenomatous colon polyp Allergic rhinitis Asthma Bilateral knee pain Chronic insomnia Colon cancer screening Degenerative joint disease of cervical and lumbar spine Eczema History of colonic polyps Inflammatory arthritis Kidney stone Migraine Overweight Seronegative rheumatoid arthritis <Pari Rider, BASEBALL WINDER - Last Filed:
[2023-12-01 18:50] VITALS: BP 133/64; PULSE 78; RESP 12; RESP 16; O2SAT 100
[2023-12-01 19:01] VITALS: BP 118/68; PULSE 73; RESP 16; O2SAT 99
--- NOTE | 2023-12-01 19:16 | PC.NURSE ---
Assumed care of pt from TRENTON Cortes at this time. Pt resting comfortably in bed with call light within reach.
[2023-12-01] MEDS: PANTOPRAZOLE SODIUM IV 40 MG VIAL IV PUSH (20:21)
[2023-12-01 21:09] LABS: Influenza A QL RT-PCR Negative (Negative); Influenza B QL RT-PCR Negative (Negative); RSV RNA, RT-PCR Negative (Negative); SARS-CoV-2 RNA PCR Negative (Negative)
[2023-12-01 21:35] VITALS: BP 121/73; PULSE 70; RESP 13; O2SAT 100
== END 2023-12-01 21:41 | disposition home or self-care (01) ==
PROVIDERS: Emergency Medicine; Emergency Provider Emergency Medicine; PCP Family Medicine
DX: M25.572 Pain in left ankle and joints of left foot (principal); M25.571 Pain in right ankle and joints of right foot; R60.9 Edema, unspecified; K21.9 Gastro-esophageal reflux disease without esophagitis; Z87.891 Personal history of nicotine dependence; Z20.822 Contact with and (suspected) exposure to COVID-19
CPT/HCPCS: 36415; 71046; 80053; 83880; 84484; 85025; 85610; 85730; 87637; 93005; 96374; 99284; C9113

== ENCOUNTER 2024-02-21 13:44 | Outpatient (CLI) | payer OTHER, SELFPAY ==
[2024-02-21 14:41] LABS: Hematocrit 36.7 % (37.0-47.0); Hemoglobin 12.6 g/dL (12.0-15.0); Mean Corpuscular HGB Conc 34.3 g/dl (32-36); Mean Corpuscular Hemoglobin 32.4 pg (26-34); Mean Corpuscular Volume 94.3 fl (80-100); Mean Platelet Volume 10.7 fl (7.4-10.4); Platelet Count Result 256 k/mm3 (150-375); Red Blood Count 3.89 M/mm3 (4.2-5.4); Red Cell Distribution Width 12.4 % (11.5-14.5); White Blood Count 5.4 K/mm3 (4.5-10.0)
[2024-02-21 14:54] LABS: Alanine Aminotransferase 31 U/L (6-35); Albumin Level 4.6 g/dL (3.5-5.1); Alkaline Phosphatase 77 U/L (38-126); Anion Gap 11 mmol/L (4-12); Aspartate Amino Transferase 41 U/L (14-36); Bilirubin,Total 0.5 mg/dL (0.2-1.3); Blood Urea Nitrogen 11 mg/dL (7-17); Calcium 9.1 mg/dL (8.4-10.2); Carbon Dioxide 25 mmol/L (22-30); Chloride 105 mmol/L (98-107); Estimated Glomerular Filt Rate > 60; Glucose 112 mg/dL (65-110); Potassium 3.4 mmol/L (3.4-5.0); Sodium 141 mmol/L (137-145)
[2024-02-21 15:24] LABS: Thyroid Stimulating Hormone 0.857 uIU/mL (0.465-4.680)
== END 2024-02-21 13:45 | disposition home or self-care (01) ==
LOC: ANHLAB 13:47
PROVIDERS: PCP Family Medicine; Visit Provider Family Medicine
DX: R60.0 Localized edema (principal); R53.83 Other fatigue
CPT/HCPCS: 36415; 80053; 84443; 85027

== ENCOUNTER 2024-11-27 16:25 | Outpatient (CLI) | payer OTHER, SELFPAY ==
--- NOTE | ~2024-11-27 | XR_ITS ---
HISTORY: M25.551 - Pain in right hip. NKI COMPARISON: None TECHNIQUE: 2 views of the bilateral hips along with an AP view of the pelvis FINDINGS: No acute fracture or dislocation is identified. Superior lateral sclerosis of the bilateral femoral acetabular joint spaces is present consistent wit h osteoarthritis. Normal mineralization. IMPRESSION: Trace degenerative disease, without acute fracture. Reviewed, dictated and finalized at location A.
--- OUTSIDE RECORDS SUMMARY | 2024-11-27 17:34 | XMS_ITS | Clinical Summary ---
Author Organization [facility] [employer] Address [address] [place] [address] Care Team Providers Care Primer Charger Name Role Phone Shahram Lott MD Primary Care Provider [phone] Source Comments [facility] [employer],non-owned Affiliates and Associated Physician Practices is amultiple site organization consisting of ambulatory clinics and hospital sitesin [place]. This disclosure is being madepursuant to the Care Everywhere program and may not contain all information available regarding this patient. Last updated 18.[facility] [employer] Social History Tobacco Use Types Packs/Day Years Used Date Smoking Tobacco: Never Assessed Sex and Gender Information Value Date Recorded Sex Assigned at Not on file Gender Identity Not on file Sexual Orientation Not on file Plan of Treatment Health Maintenance Due Date Last Done Comments COLOGUARD (AGES 45-75) - COL ON CA SCREENING 1972 COLON MONITORING 1972 COLONOSCOPY - COLON CA SCREENING 1972 CT COLONOGRAPHY - COLON CA SCREENING 1972 Colorectal Cancer Screening 1972 FIT - COLON CA SCREENING 1972 FLEX SIG - COLON CA SCREENING 1972 LIPID TESTING 1972 MAMMOGRAM 1972 PAP SMEAR 1972 HIV SCREENING 1987 HEPATITIS C SCREENING 05/12/1990 DTAP/TDAP/TD VACCINES (1 - Tdap) 1991 HEPATITIS B VACCINE (1 of 3 - 19+ 3-dose series) 1991 PNEUMOCOCCAL VACCINE 50+ (1 of 1 - PCV) 2022 ZOSTER VACCINE (1 of 2) 2022 COVID-19 VACCINE (2023-2 5 season) 2024 INFLUENZA VACCINE (#1) 2024 DEPRESSION SCREENING 08/30/2024 HIB VACCINE Aged Out No longer eligi ble based on patient's age to complete this topic HPV VACCINE Aged Out No longer eligi ble based on patient's age to complete this topic MENINGOCOCCAL (Group B) VACC INE SHARED DECISION-MAKING Aged Out No longer eligibl e based on patient's age to complete this topic MENINGOCOCCAL GROUPS A/C/Y/W VACCINE Aged Out No longer eligible b ased on patient's age to complete this topic PNEUMOCOCCAL VACCINE Aged Out No long er eligible based on patient's age to complete this topic Care Teams Primer Charger Relationship Specialty Start Date End Date Shahram Lott MD [address] [place] [address] PCP - General Family Medicine 12/04/15
--- OUTSIDE RECORDS SUMMARY | 2024-11-27 17:34 | XMS_ITS | Clinical Summary ---
Author Organization [id number] Address [address] [place] [phone] Phone Care Team Providers Care Regional Retail Sales Manager Name Role Phone Shahram Lott MD Primary Care Provider Marky Hogan MD Unavailable [phone] Allergies Active Allergy Reactions Criticality Noted Date Comments Penicillins Medications SUMAtriptan (IMITREX) 100 mg tabletIndicatio ns:Migraine 7 Active VIIBRYD 20 mg tabletIndicatio ns:major depressive disorder 7 Active ibuprofen (ibuprofen) 200 mg tab/cap Take 200 mg by mouth every 6 (six) hours as needed Active naproxen (NAPROSYN) 500 mg tablet naproxen 500 mg tablet 9 Active pseudoephedrine (SUDAFED) 30 mg tabletIndicatio ns:Nasal Congestion Take 30 mg by mouth every 4 (four) hours as needed for congestion Active Active Problems Problem Noted Date Diagnosed Date Numbness and tingling of right hand 04/18/2021 Polyarthralgia 06/14/2017 Overview (07/01/2017): US right hand/wrist (01/02/16): mild synovitis with a few grade 1 effusions, no power doppler US right hand/wrist (06/29/17): Essentially unremarkable ultrasound examination of the right hand and wrist other than mild synovial thickening of the 2nd and 3rd PIP joints and an enlarged median nerve is appreciated Xray bilat hands (11/2015) unremarkable pain over bilat 2nd, 3rd mcp, pip joints (R>L), right wrist, mtp joints, ankles. Symptoms worse at end of day. Assessment & Plan (07/08/2017 11:29 AM CONSUMER LENDING MANAGER): Symptoms greatest in the hands, wrist, feet, ankles. Has no clinical or serologic evidence of an underlying inflammatory arthritis or connective tissue disease. US right hand/wrist was essentially unremarkable for any inflammatory changes. May have some degree of OA vs overuse causing symptoms. At this time I see no evidence of an inflammatory arthritis. Symptoms are better today in comparison to last visit. Pt has sample of pennsaid 2% topical to use bid prn, if helps will call in script. F/u prn. Assessment & Plan (06/14/2017 12:28 PM CDT): CDAI 13: Moderate disease activity Still with pain over bilat 2nd, 3rd mcp, pip joints (R>L), right wrist, mtp joints, ankles. Has no synovitis on exam although has tenderness in these joints. Symptoms worse at end of day although not necessairly associated with activity. Previous work-up unremarkable >[address] España including negative serology and US right hand/wrist not showing any significant inflammatory changes. Based on previous work-up I do not se any evidence of RA or other inflammatory arthritis although based on joint distribution this remains possible. As symptoms worse as day progresses, OA possible as well. Has tried celebrex which caused GI upset. Naproxen and ibuprofen offer no benefit. Will do a trial of pennsaid 2% topical solution to see if can help. Labs as below. US right hand/wrist. F/u 2 weeks. Endometriosis 12/04/2015 Overview (12/03/2016): Endometriosis Asthma 12/04/2015 Overview (12/03/2016): Asthma Surgical History Surgery Date Site/Laterality Comments OTHER SURGICAL HISTORY Hysterectomy, total, removal of both tubes and ovaries PARTIAL HYSTERECTOMY Medical History Medical History Date Comments Migraine Anemia Social History Tobacco Use Types Packs/Day Years Used Date Smoking Tobacco: Never Alcohol Use Standard Drinks/Week Comments Yes 0 (1 standard drink = 0.6 oz pur e alcohol) Personal Safety Answer Date Recorded Getting School Help Needed Not on file 10/26 Comments Unknown Sex and Gender Information Value Date Recorded Sex Assigned at Not on file Legal Sex Female 9:32 AM CONSUMER LENDING MANAGER Gender Identity Not on file Sexual Orientation Not on file Obstetrics History Last Filed Vital Signs Vital Sign Reading Time Taken Comments Blood Pressure 111/59 04/18/2021 11:05 AM CDT Pulse 75 04/18/2021 11:05 AM CDT Temperature - - Respiratory Rate - - Oxygen Saturation - - Inhaled Oxygen Concentration - - Weight 78.5 kg (173 lb) 07/08/2017 11:09 AM CONSUMER LENDING MANAGER Height 162.6 cm (5' 4 ) 04/18/2021 11:05 AM CDT Body Mass Index 29.7 07/08/2017 11:09 AM CONSUMER LENDING MANAGER Plan of Treatment Not on file Insurance [facility] CLAIM[facility] Care Teams Regional Retail Sales Manager Relationship Specialty Start Date End Date Shahram Lott MD [address] [place] [id number] PCP - General 01/09/16 Marky Hogan MD [address] [facility] [address] [place] [address] Rheumatology 07/06/17
--- OUTSIDE RECORDS SUMMARY | 2024-11-27 17:34 | XMS_ITS | Referral Summary ---
Author Organization [id number] Address [address] [place] [phone] Phone Care Team Providers Care Payroll Manager Name Role Phone Shahram Lott MD Primary Care Provider Marky Hogan MD Unavailable [phone] Allergies Active Allergy Reactions Criticality Noted Date [...] day. Assessment & Plan (07/08/2017 11:29 AM ATTORNEY): Symptoms greatest in the hands, wrist, feet, [...] (12/03/2016): Endometriosis Asthma 12/04/2015 Overview (12/03/2016): Asthma Social History Tobacco Use Types Packs/Day Years Used Date Smoking Tobacco: Never Alcohol Use Standard Drinks/Week Comments Yes 0 (1 standard drink = 0.6 oz pur e alcohol) Personal Safety Answer Date Recorded Getting School Help Needed Not on file 10/26 Comments Unknown Sex and Gender Information Value Date Recorded Sex Assigned at Not on file Legal Sex Female 9:32 AM ATTORNEY Gender Identity Not on file Sexual Orientation Not on file Last Filed Vital Signs Vital Sign Reading Time Taken Comments Blood Pressure 111/59 04/18/2021 11:05 AM CDT Pulse 75 04/18/2021 11:05 AM CDT Temperature - - Respiratory Rate - - Oxygen Saturation - - Inhaled Oxygen Concentration - - Weight 78.5 kg (173 lb) 07/08/2017 11:09 AM ATTORNEY Height 162.6 cm (5' 4 ) 04/18/2021 11:05 AM CDT Body Mass Index 29.7 07/08/2017 11:09 AM ATTORNEY Plan of Treatment Not on file Insurance [facility] CLAIM[facility] Care Teams Payroll Manager Relationship Specialty Start Date End Date Shahram Lott MD [address] [place] [address] PCP - General 01/09/16 Marky Hogan MD [address] [facility] [address] [place] [address] Rheumatology 07/06/17
--- OUTSIDE RECORDS SUMMARY | 2024-11-27 17:34 | XMS_ITS | Clinical Summary ---
Author Organization [facility] Address [facility] [place] [address] Care Team Providers Care Jointer Submarine Cable Name Role Phone Shahram Lott MD Primary Care Provider [phone] Allergies Active Allergy Reactions Criticality Noted Date Comments Penicillins Rash Low 06/08/2012 Medications Acetaminophen-Pamab rom 325-25 MG Tab Ac tive Calcium Carb-Cholecalcifero l (CALCIUM CARBONATE-VITAMIN D3) 600-400 MG-UNIT Tab Active BISACODYL OR Active Multiple Vitamin (MULTIVITAMIN ADULT OR) Active phenazopyridine 100 MG tablet Take 1 tablet (100 mg total) by mouth daily as needed. Active betamethasone dipropionate, augmented, (DIPROLENE) 0.05 % lotion 3 Active NURTEC 75 MG disintegrating tabletIndications:M igraine without aura, not intractable, without status migrainosus DISSOLVE 1 TABLET ON THE TONGUE DAILY NEEDED 16 tablet 5 4 Active Active Problems Problem Noted Date Diagnosed Date Chronic migraine without aura 10/26/2022 Numbness and tingling of right hand 04/18/2021 Polyarthralgia 06/14/2017 Overview (01/26/2024): US right hand/wrist (01/02/16): mild synovitis with [...] ankles. Symptoms worse at end of day. Last Assessment & Plan: Symptoms greatest in the hands, wrist, feet, [...] helps will call in script. F/u prn. Asthma ([facility]) 12/04/2015 Overview (01/26/2024): Asthma Endometriosis 12/04/2015 Overview (01/26/2024): Endometriosis Encounters Date Type Department Care Team Description 10/20/2024 [facility] - [address], [address] [place] [phone] Stephon Tolliver MD 10/19/2024 2:20 PM PHARMACY MANAGER [facility] - [address], [address] [place] [phone] Stephon Tolliver MD Botox (Migraines 155units/) 10/19/2024 Scan [employer] INFO SRVCS Scanned, [facility] 10/19/2024 Travel from Last 3 Months Social History Tobacco Use Types Packs/Day Years Used Date Smoking Tobacco: Former Cigarettes Smokeless Tobacco: Former Tobacco Cessation:Counseling Given: Yes Alcohol Use Standard Drinks/Week Comments Yes 0 (1 standard drink = 0.6 oz pur e alcohol) 2-3 times a year PHQ-2 Answer Date Recorded Patient Health Questionnaire-2 Score 0 07/20/2024 Comments No Sex and Gender Information Value Date Recorded Sex Assigned at Not on file Legal Sex Female 11:13 AM PHARMACY MANAGER Gender Identity Not on file Sexual Orientation Not on file Last Filed Vital Signs Vital Sign Reading Time Taken Comments Blood Pressure 105/63 10/19/2024 2:19 PM PHARMACY MANAGER Pulse 70 10/19/2024 2:19 PM PHARMACY MANAGER Temperature 36.9 C (98.5 F) 10/19/2024 2:19 PM PHARMACY MANAGER Respiratory Rate 16 01/26/2024 9:04 AM CDT Oxygen Saturation 97% 10/19/2024 2:19 PM PHARMACY MANAGER Inhaled Oxygen Concentration - - Weight 72.6 kg (160 lb) 03/31/2023 1:19 PM CDT Height 162.6 cm (5' 4 ) 10/19/2024 2:19 PM PHARMACY MANAGER Body Mass Index 27.46 03/31/2023 1:19 PM CDT Plan of Treatment Upcoming Encounters Date Type Department Care Team (Late st Contact Info) Description 01/25/2025 8:00 AM CDT Office Visit [facility] - [address], [address] [place] [phone] Stephon Tolliver MD [address] [place] [id number] Health Maintenance Due Date Last Done Comments Colorectal Cancer Screening Colonoscopy (10 Years) 1972 Annual Physical 1975 Pneumococcal Vaccine: Pediatrics (0 to 5 Years) and At-Risk Patients (6 to 64 Years) (1 of 2 - PCV) 1978 Hepatitis C 1990 DTaP, Tdap and Td Vaccines ( 1 - Tdap) 1991 Hepatitis B Vaccines (1 of 3 - 19+ 3-dose series) 1991 Mammogram Screening 2012 Zoster Vaccines (1 of 2) 2022 COVID-19 Vaccine (3 2023-2 5 season) 2024 12/22/2020, 11/30/2020 PHQ-2 (Physician [facility]) 08/30/2024 07/20/2024 Meningococcal B Vaccine Aged Out No l onger eligible based on patient's age to complete this topic Meningococcal Vaccine Aged Out No low christie eligible based on patient's age to complete this topic RSV Immunizations Under 20 Months Aged Out No longer eligible b ased on patient's age to complete this topic Insurance [facility] Care Teams Jointer Submarine Cable Relationship Specialty Start Date End Date Shahram Lott MD [address] [place] [address] PCP - General FAMILY PRACTICE 10/13/21
--- OUTSIDE RECORDS SUMMARY | 2024-11-27 17:34 | XMS_ITS | Clinical Summary ---
Author Organization [facility] Address [address] [place] [place] [address] Phone Care Team Providers Care Head Of Drama Name Role Phone Shahram Lott MD Primary Care Provider [phone] Allergies Active Allergy Reactions Criticality Noted Date Comments Penicillin G Rash Low 06/08/2012 Medications ACETAMINOPHEN/PA MABROM (MIDOL ORAL)Indications :VV (varicose veins) Take by mouth. Active BISACODYL ORALIndications: VV (varicose veins) Take by mouth. Active MULTIVITAMIN ORALIndications: VV (varicose veins) Take by mouth. Active PSEUDOEPHEDRINE HCL (SUDAFED ORAL)Indications :VV (varicose veins) Take by mouth. Active CALCIUM CARBONATE/VITAMI N D3 (CALCIUM CHEW ORAL)Indications :VV (varicose veins) Take by mouth. Active SUMAtriptan (IMITREX) 100 mg tablet 03/11/2017 Active naproxen (NAPROSYN) 500 mg tablet TAKE 1 TABLET BY MOUTH TWICE DAILY 1 02/08/2019 Active ibuprofen (MOTRIN) 200 mg tablet Take 200 mg by mouth every 6 hours as needed for Pain, Mild. Active phenazopyridine HCl (PYRIDIUM ORAL) Take 1 Tablet by mouth 1 time daily as needed. Active Active Problems No known active problems Social History Tobacco Use Types Packs/Day Years Used Date Smoking Tobacco: Never Alcohol Use Standard Drinks/Week Comments Yes 0 (1 standard drink = 0.6 oz pur e alcohol) rare Comments No Sex and Gender Information Value Date Recorded Sex Assigned at Not on file Legal Sex Female 6:11 AM JOB ANALYST Gender Identity Not on file Sexual Orientation Not on file Occupation Industry Job Start Date Job End Date Not on file Not on file Not on file Not on file Last Filed Vital Signs Vital Sign Reading Time Taken Comments Blood Pressure 104/80 02/22/2019 8:54 AM CDT Pulse 70 07/13/2012 11:04 AM JOB ANALYST Temperature - - Respiratory Rate - - Oxygen Saturation - - Inhaled Oxygen Concentration - - Weight 65.8 kg (145 lb) 07/13/2012 11:04 AM JOB ANALYST Height 163.8 cm (5' 4.5 ) 02/22/2019 8:54 AM CDT Body Mass Index 24.13 07/13/2012 11:04 AM JOB ANALYST Plan of Treatment Health Maintenance Due Date Last Done Comments DTAP/TDAP/TD VACCINES (1 - Tdap) 1991 HEPATITIS B VACCINES (1 of 3 - 19+ 3-dose series) 04/30 PAP SMEAR 1993 CERVICAL CANCER SCREENING 2002 HPV/Cotest (30-65) 2002 PAP SMEAR 2002 BREAST CANCER SCREENING 2012 COLORECTAL SCREENING 2017 Colorectal Cancer Screening 2017 FIT-DNA Q 3 years 2017 FIT/FOBT Q 1 year 2017 Flex Sig/CT Colonography Q 5 years 2017 ZOSTER VACCINE (1 of 2) 2022 INFLUENZA VACCINE (#1) 2024 Insurance [facility] Care Teams Head Of Drama Relationship Specialty Start Date End Date Shahram Lott MD [address] [facility] [address] [place] [address] PCP - General Family Practice 01/12/19
== END 2024-11-27 16:26 | disposition home or self-care (01) ==
PROVIDERS: PCP Family Medicine; Visit Provider Family Medicine
DX: M25.551 Pain in right hip (principal); M25.552 Pain in left hip
CPT/HCPCS: 73521

== ENCOUNTER 2025-01-17 17:00 | Outpatient (CLI) | payer OTHER, SELFPAY ==
--- OUTSIDE RECORDS SUMMARY | 2025-01-17 17:05 | XMS_ITS | Clinical Summary ---
Author Organization [id number] Address [address] [place] [address] Phone Care Team Providers Care Broom Bundler Name Role Phone Shahram Lott MD Primary Care Provider Marky Hogan MD Unavailable [phone] Allergies Active Allergy Reactions Criticality Noted Date [...] day. Assessment & Plan (07/08/2017 11:29 AM WRAPPER DIPPER): Symptoms greatest in the hands, wrist, feet, [...] on file Legal Sex Female 9:32 AM WRAPPER DIPPER Gender Identity Not on file Sexual Orientation Not on file Obstetrics History Last Filed Vital Signs Vital Sign Reading Time Taken Comments Blood Pressure 111/59 04/18/2021 11:05 AM CDT Pulse 75 04/18/2021 11:05 AM CDT Temperature - - Respiratory Rate - - Oxygen Saturation - - Inhaled Oxygen Concentration - - Weight 78.5 kg (173 lb) 07/08/2017 11:09 AM WRAPPER DIPPER Height 162.6 cm (5' 4 ) 04/18/2021 11:05 AM CDT Body Mass Index 29.7 07/08/2017 11:09 AM WRAPPER DIPPER Plan of Treatment Not on file Insurance [facility] CLAIMS Care Teams Broom Bundler Relationship Specialty Start Date End Date Shahram Lott MD [address] [place] [id number] PCP - General 01/09/16 Marky Hogan MD [address] [facility] 110 [place] [address] Rheumatology 07/06/17
--- OUTSIDE RECORDS SUMMARY | 2025-01-17 17:05 | XMS_ITS | Clinical Summary ---
Author Organization [facility] Address [address] [place] [address] Phone Care Team Providers Care Elevator Worker Name Role Phone Shahram Lott MD Primary Care Provider [phone] Allergies Active Allergy Reactions Criticality Noted Date [...] on file Legal Sex Female 6:11 AM WARDROBE COORDINATOR Gender Identity Not on file Sexual Orientation Not on file Occupation Industry Job Start Date Job End Date Not on file Not on file Not on file Not on file Last Filed Vital Signs Vital Sign Reading Time Taken Comments Blood Pressure 104/80 02/22/2019 8:54 AM CDT Pulse 70 07/13/2012 11:04 AM WARDROBE COORDINATOR Temperature - - Respiratory Rate - - Oxygen Saturation - - Inhaled Oxygen Concentration - - Weight 65.8 kg (145 lb) 07/13/2012 11:04 AM WARDROBE COORDINATOR Height 163.8 cm (5' 4.5 ) 02/22/2019 8:54 AM CDT Body Mass Index 24.13 07/13/2012 11:04 AM WARDROBE COORDINATOR Plan of Treatment Health Maintenance Due Date Last Done Comments DTAP/TDAP/TD VACCINES (1 - Tdap) 1991 HEPATITIS B VACCINES (1 of 3 - 19+ 3-dose series) 04/30 HPV/Cotest (21-29) 1993 CERVICAL CANCER SCREENING 2002 HPV/Cotest (30-65) 2002 PAP SMEAR 2002 BREAST CANCER SCREENING 2012 COLORECTAL SCREENING 2017 Colorectal Cancer Screening 2017 FIT-DNA Q 3 years 2017 FIT/FOBT Q 1 year 2017 Flex Sig/CT Colonography Q 5 years 2017 ZOSTER VACCINE (1 of 2) 2022 INFLUENZA VACCINE (#1) 2024 Insurance [facility] Care Teams Elevator Worker Relationship Specialty Start Date End Date Shahram Lott MD [address] [facility] [address] [facility] 120 [place] [phone] PCP - General Family Practice 01/12/19
--- OUTSIDE RECORDS SUMMARY | 2025-01-17 17:05 | XMS_ITS | Referral Summary ---
Author Organization [facility] Address [address] [place] [address] Phone Care Team Providers Care Getter Welder Name Role Phone Shahram Lott MD Primary Care Provider Marky Hogan MD Unavailable [phone] Allergies Active Allergy Reactions Criticality Noted Date [...] day. Assessment & Plan (07/08/2017 11:29 AM BARKER OPERATOR): Symptoms greatest in the hands, wrist, feet, [...] on file Legal Sex Female 9:32 AM BARKER OPERATOR Gender Identity Not on file Sexual Orientation Not on file Last Filed Vital Signs Vital Sign Reading Time Taken Comments Blood Pressure 111/59 04/18/2021 11:05 AM CDT Pulse 75 04/18/2021 11:05 AM CDT Temperature - - Respiratory Rate - - Oxygen Saturation - - Inhaled Oxygen Concentration - - Weight 78.5 kg (173 lb) 07/08/2017 11:09 AM BARKER OPERATOR Height 162.6 cm (5' 4 ) 04/18/2021 11:05 AM CDT Body Mass Index 29.7 07/08/2017 11:09 AM BARKER OPERATOR Plan of Treatment Not on file Insurance [facility] CLAIMS Care Teams Getter Welder Relationship Specialty Start Date End Date Shahram Lott MD [address] [place] [address] PCP - General 01/09/16 Marky Hogan MD [address] [facility] 110 [place] [address] Rheumatology 07/06/17
--- OUTSIDE RECORDS SUMMARY | 2025-01-17 17:05 | XMS_ITS | Clinical Summary ---
Author Organization [facility] [employer] Address [address] [place] [address] Care Team Providers Care Latin Dancer Name Role Phone Shahram Lott MD Primary Care Provider [phone] [facility],non-owned Affiliates and Associated Physician Practices is amultiple site organization consisting of ambulatory clinics and hospital sitesin [place], [place], [place] and [place]. This disclosure is being madepursuant to the Care Everywhere program and may not contain all information available regarding this patient. Last updated 18.[facility] [employer] Social History Tobacco Use Types Packs/Day Years Used Date Smoking Tobacco: Never Assessed Comments Unknown Sex and Gender Information Value Date Recorded Sex Assigned at Not on file Legal Sex Female 10:06 AM CDT Gender Identity Not on file Sexual Orientation [...] VACCINE (1 of 2) 2022 COVID-19 VACCINE (1 - 2023-2 5 season) 2024 DEPRESSION SCREENING 08/30/2024 INFLUENZA VACCINE (Season Ended) 2025 HIB VACCINE Aged Out No longer eligi [...] patient's age to complete this topic Insurance [facility] Address: [address] [address] Care Teams Latin Dancer Relationship Specialty Start Date End Date Shahram Lott MD [address] [place] [address] PCP - General Family Medicine 12/04/15
[2025-01-17 17:44] LABS: Hematocrit 34.4 % (37.0-47.0); Hemoglobin 11.6 g/dL (12.0-15.0); Mean Corpuscular HGB Conc 33.7 g/dl (32-36); Mean Corpuscular Hemoglobin 32.8 pg (26-34); Mean Corpuscular Volume 97.2 fl (80-100); Mean Platelet Volume 10.4 fl (7.4-10.4); Platelet Count Result 277 k/mm3 (150-375); Red Blood Count 3.54 M/mm3 (4.2-5.4); Red Cell Distribution Width 12.5 % (11.5-14.5); White Blood Count 4.8 K/mm3 (4.5-10.0)
[2025-01-17 19:27] LABS: Alanine Aminotransferase 17 U/L (6-35); Albumin Level 4.7 g/dL (3.5-5.1); Alkaline Phosphatase 49 U/L (38-126); Anion Gap 5 mmol/L (4-12); Aspartate Amino Transferase 30 U/L (14-36); Bilirubin,Total 0.9 mg/dL (0.2-1.3); Blood Urea Nitrogen 13 mg/dL (7-17); Calcium 9.3 mg/dL (8.4-10.2); Carbon Dioxide 30 mmol/L (22-30); Chloride 104 mmol/L (98-107); Estimated Glomerular Filt Rate > 60; Glucose 93 mg/dL (65-110); Potassium 4.2 mmol/L (3.4-5.0); Sodium 139 mmol/L (137-145)
[2025-01-17 19:53] LABS: Thyroid Stimulating Hormone 0.913 uIU/mL (0.465-4.680)
[2025-01-17 20:30] LABS: Folic Acid 14.3 ng/mL (2.76->20)
== END 2025-01-17 17:01 | disposition home or self-care (01) ==
LOC: ANHLAB 17:01
PROVIDERS: PCP Family Medicine; Visit Provider Family Medicine
DX: E55.9 Vitamin D deficiency, unspecified (principal); R53.83 Other fatigue
CPT/HCPCS: 36415; 80053; 82306; 82607; 82746; 84443; 85027

== ENCOUNTER 2025-02-05 07:32 | Outpatient (CLI) | payer OTHER, SELFPAY ==
--- NOTE | ~2025-02-05 | MM_ITS ---
EXAMINATION: MM screening jose BI w maryam HISTORY: Screening TECHNIQUE: Craniocaudal and mediolateral oblique 3-D tomosynthesis images were obtained and synthetic 2-D images were generated. CAD analysis was submitted and interpreted. COMPARISON: Comparison to multiple prior studies sequentially, with oldest reviewed study dated 02/2018. BREAST PARENCHYMAL COMPOSITION: Not dense: There are scattered areas of fibroglandular density. FINDINGS: There are developing periareolar asymmetries of the right breast. The left breast is stable without evidence for malignancy. IMPRESSION: 1. Developing periareolar asymmetries of the right breast. 2. Additional mammographic views and possible breast ultrasound are recommended. BI-RADS Category 0: Incomplete: Needs additional imaging evaluation. Reviewed, dictated and finalized at location B. IMPRESSION: 1. Developing periareolar asymmetries of the right breast. 2. Additional mammographic views and possible breast ultrasound are recommended . BI-RADS Category 0: Incomplete: Needs additional imaging evaluation.
--- OUTSIDE RECORDS SUMMARY | 2025-02-05 07:36 | XMS_ITS | Clinical Summary ---
Author Organization [facility] Address [address] [place] [address] Phone Care Team Providers Care Emergency Room Orderly Name Role Phone Shahram Lott MD Primary Care Provider [phone] Allergies Active Allergy Reactions Criticality Noted Date [...] on file Legal Sex Female 6:11 AM MINIATURE SET BUILDER Gender Identity Not on file Sexual Orientation Not on file Occupation Industry Job Start Date Job End Date Not on file Not on file Not on file Not on file Last Filed Vital Signs Vital Sign Reading Time Taken Comments Blood Pressure 104/80 02/22/2019 8:54 AM CDT Pulse 70 07/13/2012 11:04 AM MINIATURE SET BUILDER Temperature - - Respiratory Rate - - Oxygen Saturation - - Inhaled Oxygen Concentration - - Weight 65.8 kg (145 lb) 07/13/2012 11:04 AM MINIATURE SET BUILDER Height 163.8 cm (5' 4.5) 02/22/2019 8:54 AM CDT Body Mass Index 24.13 07/13/2012 11:04 AM MINIATURE SET BUILDER Plan of Treatment Health Maintenance Due Date [...] 2) 2022 INFLUENZA VACCINE (#1) 2024 Insurance [facility] Care Teams Emergency Room Orderly Relationship Specialty Start Date End Date Shahram Lott MD [address] [facility] [address] [facility] 120 [place] [phone] PCP - General Family Practice 01/12/19
--- OUTSIDE RECORDS SUMMARY | 2025-02-05 07:36 | XMS_ITS | Referral Summary ---
Author Organization [facility] Address [address] [place] [address] Phone Care Team Providers Care Sales Team Leader Name Role Phone Shahram Lott MD Primary Care Provider Marky Hogan MD Unavailable [phone] Allergies Active Allergy Reactions Criticality Noted Date [...] day. Assessment & Plan (07/08/2017 11:29 AM SUPERINTENDENT DRIVERS): Symptoms greatest in the hands, wrist, feet, [...] on file Legal Sex Female 9:32 AM SUPERINTENDENT DRIVERS Gender Identity Not on file Sexual Orientation Not on file Last Filed Vital Signs Vital Sign Reading Time Taken Comments Blood Pressure 111/59 04/18/2021 11:05 AM CDT Pulse 75 04/18/2021 11:05 AM CDT Temperature - - Respiratory Rate - - Oxygen Saturation - - Inhaled Oxygen Concentration - - Weight 78.5 kg (173 lb) 07/08/2017 11:09 AM SUPERINTENDENT DRIVERS Height 162.6 cm (5' 4) 04/18/2021 11:05 AM CDT Body Mass Index 29.7 07/08/2017 11:09 AM SUPERINTENDENT DRIVERS Plan of Treatment Not on file Insurance [facility] CLAIMS Care Teams Sales Team Leader Relationship Specialty Start Date End Date Shahram Lott MD [address] [place] [address] PCP - General 01/09/16 Marky Hogan MD [address] [place] [address] [facility] 07/06/17
--- OUTSIDE RECORDS SUMMARY | 2025-02-05 07:36 | XMS_ITS | Clinical Summary ---
Author Organization [facility] Address [address] [place] [phone] Phone Care Team Providers Care Woodwork Teacher Name Role Phone Shahram Lott MD Primary Care Provider Marky Hogan MD Unavailable [phone] Allergies Active Allergy Reactions Criticality Noted Date [...] day. Assessment & Plan (07/08/2017 11:29 AM MOTOR AND GENERATOR ASSEMBLER): Symptoms greatest in the hands, wrist, feet, [...] on file Legal Sex Female 9:32 AM MOTOR AND GENERATOR ASSEMBLER Gender Identity Not on file Sexual Orientation Not on file Obstetrics History Last Filed Vital Signs Vital Sign Reading Time Taken Comments Blood Pressure 111/59 04/18/2021 11:05 AM CDT Pulse 75 04/18/2021 11:05 AM CDT Temperature - - Respiratory Rate - - Oxygen Saturation - - Inhaled Oxygen Concentration - - Weight 78.5 kg (173 lb) 07/08/2017 11:09 AM MOTOR AND GENERATOR ASSEMBLER Height 162.6 cm (5' 4) 04/18/2021 11:05 AM CDT Body Mass Index 29.7 07/08/2017 11:09 AM MOTOR AND GENERATOR ASSEMBLER Plan of Treatment Not on file Insurance [facility] CLAIMS Care Teams Woodwork Teacher Relationship Specialty Start Date End Date Shahram Lott MD [address] [place] [id number] PCP - General 01/09/16 Marky Hogan MD [address] [place] [address] [facility] 07/06/17
--- OUTSIDE RECORDS SUMMARY | 2025-02-05 07:36 | XMS_ITS | Clinical Summary ---
Author Organization [facility] [employer] Address [address] [place] [address] Care Team Providers Care Mild Disabilities Teacher Name Role Phone Shahram Lott MD Primary Care Provider [phone] Source Comments [facility],non-owned Affiliates and Associated Physician Practices is amultiple site organization consisting of ambulatory clinics and hospital sitesin [place], [place], [place] and [place]. This disclosure is being madepursuant to the Care Everywhere program and may not contain all information available regarding this patient. Last updated 18.[facility] [employer] Social History Tobacco Use Types Packs/Day Years [...] patient's age to complete this topic Insurance [facility] Address: [address] [address] Care Teams Mild Disabilities Teacher Relationship Specialty Start Date End Date Shahram Lott MD [address] [place] [address] PCP - General Family Medicine 12/04/15
== END 2025-02-05 07:33 | disposition home or self-care (01) ==
PROVIDERS: PCP Family Medicine; Visit Provider Nurse Practitioner
DX: Z12.31 Encounter for screening mammogram for malignant neoplasm of breast (principal); N64.89 Other specified disorders of breast
CPT/HCPCS: 77063; 77067

== ENCOUNTER 2025-02-12 10:59 | Outpatient (CLI) | payer OTHER, SELFPAY ==
--- NOTE | ~2025-02-12 | MMUS_ITS ---
EXAMINATION: MM diagnostic jose RT w maryam, US breast RT limited HISTORY: Follow-up right breast asymmetry TECHNIQUE: Additional 3-D tomosynthesis images of the right breast were performed and synthetic 2-D i mages were generated. CAD analysis was submitted and interpreted. High resolution Limited right breas t ultrasound was performed. COMPARISON: Comparison to multiple prior studies sequentially, with oldest reviewed study dated 02/06. BREAST PARENCHYMAL COMPOSITION: Not dense: There are scattered areas of fibroglandular density. FINDINGS: MAMMOGRAPHIC FINDINGS: Asymmetries in the subareolar location the right breast are less apparent with spot compression and m ediolateral views, likely superimposed fibroglandular content. ULTRASOUND: Limited right breast ultrasound: Normal heterogeneous echotexture without focal solid or cystic mass. IMPRESSION: 1. No evidence for malignancy in the right breast. 2. Routine yearly screening mammogram and regular clinical breast examination are recommended. BI-RADS Category 1: Negative Reviewed, dictated and finalized at location A. IMPRESSION: 1. No evidence for malignancy in the right breast. 2. Routine yearly screening mammogram and regular clinical breast examination a re recommended. BI-RADS Category 1: Negative
--- OUTSIDE RECORDS SUMMARY | 2025-02-12 12:07 | XMS_ITS | Clinical Summary ---
Author Organization [facility] Address [address] [place] [address] Phone Care Team Providers Care Business Development Coordinator Name Role Phone Shahram Lott MD Primary Care Provider Marky Hogan MD Unavailable [phone] Allergies Active Allergy Reactions Criticality Noted Date [...] day. Assessment & Plan (07/08/2017 11:29 AM TIMBER FRAMER HELPER): Symptoms greatest in the hands, wrist, feet, [...] on file Legal Sex Female 9:32 AM TIMBER FRAMER HELPER Gender Identity Not on file Sexual Orientation Not on file Obstetrics History Last Filed Vital Signs Vital Sign Reading Time Taken Comments Blood Pressure 111/59 04/18/2021 11:05 AM CDT Pulse 75 04/18/2021 11:05 AM CDT Temperature - - Respiratory Rate - - Oxygen Saturation - - Inhaled Oxygen Concentration - - Weight 78.5 kg (173 lb) 07/08/2017 11:09 AM TIMBER FRAMER HELPER Height 162.6 cm (5' 4) 04/18/2021 11:05 AM CDT Body Mass Index 29.7 07/08/2017 11:09 AM TIMBER FRAMER HELPER Plan of Treatment Not on file Insurance [facility] Care Teams Business Development Coordinator Relationship Specialty Start Date End Date Shahram Lott MD [address] [place] [id number] PCP - General 01/09/16 Marky Hogan MD [address] [place] [address] [facility] 07/06/17
--- OUTSIDE RECORDS SUMMARY | 2025-02-12 12:07 | XMS_ITS | Referral Summary ---
Author Organization [id number] Address [address] [place] [phone] Phone Care Team Providers Care Thread Inspector Name Role Phone Shahram Lott MD Primary Care Provider Marky Hogan MD Unavailable [phone] Allergies Active Allergy Reactions Criticality Noted Date [...] day. Assessment & Plan (07/08/2017 11:29 AM WIRE CHIEF): Symptoms greatest in the hands, wrist, feet, [...] on file Legal Sex Female 9:32 AM WIRE CHIEF Gender Identity Not on file Sexual Orientation Not on file Last Filed Vital Signs Vital Sign Reading Time Taken Comments Blood Pressure 111/59 04/18/2021 11:05 AM CDT Pulse 75 04/18/2021 11:05 AM CDT Temperature - - Respiratory Rate - - Oxygen Saturation - - Inhaled Oxygen Concentration - - Weight 78.5 kg (173 lb) 07/08/2017 11:09 AM WIRE CHIEF Height 162.6 cm (5' 4) 04/18/2021 11:05 AM CDT Body Mass Index 29.7 07/08/2017 11:09 AM WIRE CHIEF Plan of Treatment Not on file Insurance [facility] CLAIMS Care Teams Thread Inspector Relationship Specialty Start Date End Date Shahram Lott MD [address] [place] [address] PCP - General 01/09/16 Marky Hogan MD [address] [place] [address] [facility] 07/06/17
--- OUTSIDE RECORDS SUMMARY | 2025-02-12 12:07 | XMS_ITS | Clinical Summary ---
Author Organization [facility] Address [address] [place] [place] [address] Phone Care Team Providers Care Youth Director Name Role Phone Shahram Lott MD Primary Care Provider [phone] Allergies Active Allergy Reactions Criticality Noted Date [...] on file Legal Sex Female 6:11 AM LINOLEUM TILE FLOOR LAYER Gender Identity Not on file Sexual Orientation Not on file Occupation Industry Job Start Date Job End Date Not on file Not on file Not on file Not on file Last Filed Vital Signs Vital Sign Reading Time Taken Comments Blood Pressure 104/80 02/22/2019 8:54 AM CDT Pulse 70 07/13/2012 11:04 AM LINOLEUM TILE FLOOR LAYER Temperature - - Respiratory Rate - - Oxygen Saturation - - Inhaled Oxygen Concentration - - Weight 65.8 kg (145 lb) 07/13/2012 11:04 AM LINOLEUM TILE FLOOR LAYER Height 163.8 cm (5' 4.5) 02/22/2019 8:54 AM CDT Body Mass Index 24.13 07/13/2012 11:04 AM LINOLEUM TILE FLOOR LAYER Plan of Treatment Health Maintenance Due Date [...] 2) 2022 INFLUENZA VACCINE (#1) 2024 Insurance [facility] Care Teams Youth Director Relationship Specialty Start Date End Date Shahram Lott MD [address] [facility] [address] [facility] 120 [place] [id number] PCP - General Family Practice 01/12/19
--- OUTSIDE RECORDS SUMMARY | 2025-02-12 12:07 | XMS_ITS | Clinical Summary ---
Author Organization [facility] [employer] Address [address] [facility] [place] [address] Care Team Providers Care General Operator Name Role Phone Shahram Lott MD Primary Care Provider [phone] Source Comments [facility],non-owned Affiliates and Associated Physician Practices is amultiple site organization consisting of ambulatory clinics and hospital sitesin [place], [place], [place] and [place]. This disclosure is being madepursuant to the Care Everywhere program and may not contain all information available regarding this patient. Last updated 18.[facility] [employer] Social History Tobacco Use Types Packs/Day Years [...] SCREENING 1972 LIPID TESTING 1972 MAMMOGRAM 1972 HIV SCREENING 1987 HEPATITIS C SCREENING 05/12/1990 DTAP/TDAP/TD VACCINES (1 - Tdap) 1991 HEPATITIS B VACCINE (1 of 3 - 19+ 3-dose series) 1991 PAP SMEAR 1993 PNEUMOCOCCAL VACCINE 50+ (1 of 1 - [...] patient's age to complete this topic Insurance [facility] Address: [address] [address] Care Teams General Operator Relationship Specialty Start Date End Date Shahram Lott MD [address] [place] [address] PCP - General Family Medicine 12/04/15
== END 2025-02-12 11:00 | disposition home or self-care (01) ==
PROVIDERS: PCP Family Medicine; Visit Provider Obstetrics & Gynecology Gynecology
DX: R92.8 Other abnormal and inconclusive findings on diagnostic imaging of breast (principal)
CPT/HCPCS: 76642; 77061; 77065; G0279

== ENCOUNTER 2025-03-17 11:07 | Outpatient (CLI) | payer OTHER, SELFPAY ==
--- NOTE | ~2025-03-17 | CT_ITS ---
Noncontrast CT scan of the paranasal sinuses CLINICAL HISTORY: Otalgia TECHNIQUE: Axial noncontrast imaging of the paranasal sinuses was performed. Sagittal and coronal ref ormatted images were constructed. Dose reduction technique was used on this scan by utilizing automat ed exposure control and iterative reconstruction technique. The dose-length product (DLP) was 219.44 mGy-cm. Findings: Paranasal sinuses and mastoid air cells are clear. Visualized osseous structures are intact . No distinct soft tissue abnormality seen. IMPRESSION: Clear paranasal sinuses. Reviewed, dictated and finalized at location M. IMPRESSION: Clear paranasal sinuses.
--- OUTSIDE RECORDS SUMMARY | 2025-03-17 11:11 | XMS_ITS | Clinical Summary ---
Author Organization [facility] [employer] Address [address] [place] [address] Care Team Providers Care Dumper Name Role Phone Shahram Lott MD Primary Care Provider [phone] Source Comments [facility],non-owned Affiliates and Associated Physician Practices is amultiple site organization consisting of ambulatory clinics and hospital sitesin [place], [place], [place] and [place]. This disclosure is being madepursuant to the Care Everywhere program and may not contain all information available regarding this patient. Last updated 18.[facility] [employer] Social History Tobacco Use Types Packs/Day Years [...] season) 2024 DEPRESSION SCREENING 08/30/2024 INFLUENZA VACCINE (#1) 2025 HIB VACCINE Aged Out No longer [...] patient's age to complete this topic Insurance [facility] Address: [address] [address] [facility] Address: [facility] CLAIMS [address] [place] [phone] Care Teams Dumper Relationship Specialty Start Date End Date Shahram Lott MD [address] [place] [address] PCP - General Family Medicine 12/04/15
--- OUTSIDE RECORDS SUMMARY | 2025-03-17 11:11 | XMS_ITS | Clinical Summary ---
Author Organization [facility] Address [facility] [place] [address] Care Team Providers Care Aircraft Machinist Name Role Phone Shahram Lott MD Primary Care Provider [phone] Allergies Active Allergy Reactions Criticality Noted Date [...] will call in script. F/u prn. Asthma ([facility]) 12/04/2015 Overview (01/26/2024): Asthma Endometriosis 12/04/2015 Overview (01/26/2024): Endometriosis Encounters Date Type Department Care Team Description 01/25/2025 8:00 AM CDT Office Visit [facility] Multispecialty Care - [address], [address] [place] [address] Stephon Tolliver MD Botox (Migraine 155units) 01/25/2025 Scan [employer] HEALTH INFO SRVCS Scanned, Doc Med Group 01/25/2025 Travel from Last 3 Months Social History [...] on file Legal Sex Female 11:13 AM SILK SPREADER Gender Identity Not on file Sexual Orientation Not on file Last Filed Vital Signs Vital Sign Reading Time Taken Comments Blood Pressure 106/63 01/25/2025 8:03 AM CDT Pulse 71 01/25/2025 8:03 AM CDT Temperature 36.7 C (98 F) 01/25/2025 8:03 AM CDT Respiratory Rate 16 01/26/2024 9:04 AM CDT Oxygen Saturation 100% 01/25/2025 8:03 AM CDT Inhaled Oxygen Concentration - - Weight 72.6 kg (160 lb) 03/31/2023 1:19 PM CDT Height 162.6 cm (5' 4) 01/25/2025 8:03 AM CDT Body Mass Index 27.46 03/31/2023 1:19 PM CDT Plan of Treatment Upcoming Encounters Date Type Department Care Team (Late st Contact Info) Description 04/19/2025 8:20 AM CDT Office Visit [facility] Multispecialty Care - [address], [address] [place] [address] Stephon Tolliver MD [address] [place] [address] Health Maintenance Due Date Last Done Comments Colorectal Cancer Screening Colonoscopy (10 Years) 1972 Annual Physical 1975 Hepatitis C 1990 DTaP, Tdap and Td Vaccines ( 1 - Tdap) 1991 Hepatitis B Vaccines (1 of 3 - 19+ 3-dose series) 1991 Pneumococcal Vaccine: 50+ Years (1 of 2 - PCV) 1991 Mammogram Screening 2012 Zoster Vaccines (1 of 2) 2022 COVID-19 Vaccine (3 - 2023-2 5 season) 2024 12/22/2020, 11/30/2020 PHQ-2 (Physician [place]) 08/30/2024 07/20/2024 Meningococcal B Vaccine Aged Out No l onger eligible based on patient's age to complete this topic Meningococcal Vaccine Aged Out No low christie eligible based on patient's age to complete this topic RSV Immunizations Under 20 Months Aged Out No longer eligible b ased on patient's age to complete this topic Insurance Care Teams Aircraft Machinist Relationship Specialty Start Date End Date Shahram Lott MD [address] [place] [address] PCP - General FAMILY PRACTICE 10/13/21
--- OUTSIDE RECORDS SUMMARY | 2025-03-17 11:11 | XMS_ITS | Clinical Summary ---
Author Organization [id number] Address [address] [place] [address] Phone Care Team Providers Care Beauty Therapist Name Role Phone Shahram Lott MD Primary Care Provider Marky Hogan MD Unavailable [phone] Allergies Active Allergy Reactions Criticality Noted Date [...] day. Assessment & Plan (07/08/2017 11:29 AM FAMILY ENGAGEMENT SPECIALIST): Symptoms greatest in the hands, wrist, feet, [...] on file Legal Sex Female 9:32 AM FAMILY ENGAGEMENT SPECIALIST Gender Identity Not on file Sexual Orientation Not on file Obstetrics History Last Filed Vital Signs Vital Sign Reading Time Taken Comments Blood Pressure 111/59 04/18/2021 11:05 AM CDT Pulse 75 04/18/2021 11:05 AM CDT Temperature - - Respiratory Rate - - Oxygen Saturation - - Inhaled Oxygen Concentration - - Weight 78.5 kg (173 lb) 07/08/2017 11:09 AM FAMILY ENGAGEMENT SPECIALIST Height 162.6 cm (5' 4) 04/18/2021 11:05 AM CDT Body Mass Index 29.7 07/08/2017 11:09 AM FAMILY ENGAGEMENT SPECIALIST Plan of Treatment Not on file Insurance [facility] CLAIMS Care Teams Beauty Therapist Relationship Specialty Start Date End Date Shahram Lott MD [address] [place] [id number] PCP - General 01/09/16 Marky Hogan MD [address] [place] [address] [facility] 07/06/17
--- OUTSIDE RECORDS SUMMARY | 2025-03-17 11:11 | XMS_ITS | Patient Health Record ---
Author Organization [facility] Address [address] [facility] [address] [place] [address] Care Team Providers Care Can Sorter Name Role Phone Glen Vega Unavailable [phone] Reason For Referral No Information Plan Of Treatment No Information
--- OUTSIDE RECORDS SUMMARY | 2025-03-17 11:11 | XMS_ITS | Referral Summary ---
Author Organization [id number] Address [address] [place] [address] Phone Care Team Providers Care Director Medical Safety Name Role Phone Shahram Lott MD Primary Care Provider Marky Hogan MD Unavailable [phone] Allergies Active Allergy Reactions Criticality Noted Date [...] day. Assessment & Plan (07/08/2017 11:29 AM SNUBBER): Symptoms greatest in the hands, wrist, feet, [...] on file Legal Sex Female 9:32 AM SNUBBER Gender Identity Not on file Sexual Orientation Not on file Last Filed Vital Signs Vital Sign Reading Time Taken Comments Blood Pressure 111/59 04/18/2021 11:05 AM CDT Pulse 75 04/18/2021 11:05 AM CDT Temperature - - Respiratory Rate - - Oxygen Saturation - - Inhaled Oxygen Concentration - - Weight 78.5 kg (173 lb) 07/08/2017 11:09 AM SNUBBER Height 162.6 cm (5' 4) 04/18/2021 11:05 AM CDT Body Mass Index 29.7 07/08/2017 11:09 AM SNUBBER Plan of Treatment Not on file Insurance [facility] CLAIMS Care Teams Director Medical Safety Relationship Specialty Start Date End Date Shahram Lott MD [address] [place] [address] PCP - General 01/09/16 Marky Hogan MD [address] [place] [address] [facility] 07/06/17
--- OUTSIDE RECORDS SUMMARY | 2025-03-17 11:11 | XMS_ITS | Clinical Summary ---
Author Organization [facility] Address [address] [place] [address] Phone Care Team Providers Care Frontload Driver Name Role Phone Shahram Lott MD Primary Care Provider [phone] Allergies Active Allergy Reactions Criticality Noted Date [...] on file Legal Sex Female 6:11 AM MEAL ROOM HAND Gender Identity Not on file Sexual Orientation Not on file Occupation Industry Job Start Date Job End Date Not on file Not on file Not on file Not on file Last Filed Vital Signs Vital Sign Reading Time Taken Comments Blood Pressure 104/80 02/22/2019 8:54 AM CDT Pulse 70 07/13/2012 11:04 AM MEAL ROOM HAND Temperature - - Respiratory Rate - - Oxygen Saturation - - Inhaled Oxygen Concentration - - Weight 65.8 kg (145 lb) 07/13/2012 11:04 AM MEAL ROOM HAND Height 163.8 cm (5' 4.5) 02/22/2019 8:54 AM CDT Body Mass Index 24.13 07/13/2012 11:04 AM MEAL ROOM HAND Plan of Treatment Health Maintenance Due Date [...] (1 of 2) 2022 INFLUENZA VACCINE (#1) 2025 Insurance [facility] Address: [facility] [address] [place] [address] Care Teams Frontload Driver Relationship Specialty Start Date End Date Shahram Lott MD [address] [facility] [address] [facility] [address] [place] [id number] PCP - General Family Practice 01/12/19
== END 2025-03-17 11:08 | disposition home or self-care (01) ==
LOC: ANHIMG 11:09
PROVIDERS: PCP Family Medicine; Visit Provider Otolaryngology
DX: H92.02 Otalgia, left ear (principal); R51.9 Headache, unspecified; J01.90 Acute sinusitis, unspecified
CPT/HCPCS: 70486

== ENCOUNTER 2025-04-24 06:44 | Emergency (ER) | payer OTHER, SELFPAY ==
--- OUTSIDE RECORDS SUMMARY | 2025-04-24 06:46 | XMS_ITS | Clinical Summary ---
Author Organization [facility] Address [facility] [place] [address] Care Team Providers Care Utility Agent Name Role Phone Shahram Lott MD Primary Care Provider [phone] Allergies Active Allergy Reactions Criticality Noted Date Comments Penicillins Rash Low 06/08/2012 Medications Acetaminophen-Pama brom 325-25 MG Tab A ctive Calcium Carb-Cholecalcifer ol (CALCIUM CARBONATE-VITAMIN D3) 600-400 MG-UNIT Tab Active BISACODYL OR Active Multiple Vitamin (MULTIVITAMIN ADULT OR) Active phenazopyridine 100 MG tablet Take 1 tablet (100 mg total) by mouth daily as needed. Active betamethasone dipropionate, augmented, (DIPROLENE) 0.05 % lotion 3 Active rimegepant (NURTEC) 75 MG disintegrating tabletIndications: Migraine without aura, not intractable, without status migrainosus Take 1 tablet (75 mg total) by mouth once as needed for Migraine. Max of 1 tablet (75 mg) in 24 hours. 16 tablet 5 5 Active ZEPBOUND 10 MG/0.5ML injection Inject 10 mg into the skin once a week. 5 Active omeprazole (PRILOSEC) 40 MG capsule Take 1 capsule (40 mg total) by mouth as needed. 5 Active atogepant (QULIPTA) tabletIndications: Chronic migraine without aura without status migrainosus, not intractable Take 1 tablet (60 mg total) by mouth daily. 30 tablet 11 5 Active NURTEC 75 MG disintegrating tabletIndications: Migraine without aura, not intractable, without status migrainosus DISSOLVE 1 TABLET ON THE TONGUE DAILY NEEDED 16 tablet 5 5 025 Discontin ued(Reord er) Active Problems Problem Noted Date Diagnosed Date [...] will call in script. F/u prn. Asthma ([facility]) 12/04/2015 Overview (01/26/2024): Asthma Endometriosis 12/04/2015 Overview (01/26/2024): Endometriosis Encounters Date Type Department Care Team Description 04/18/2025 8:40 AM CDT Office Visit [facility] Multispecialty [place] [facility] [address] [facility], [address] [place] [address] Stephon Tolliver MD Botox Procedure (Chronic migraines) 04/18/2025 Scan [facility] HEALTH INFO SRVCS Scanned, Doc Med Group 04/18/2025 Travel 04/02/2025 Orders Only [facility] Multispecialty Care - [address], [address] [place] [address] Shai Ortiz MA 03/29/2025 Telephone [facility] - [address] [place] [address] Stephon Tolliver MD Medication 01/25/2025 8:00 AM CDT [facility] [address], [address] [place] [address] Stephon Tolliver MD Botox (Migraine 155units) 01/25/2025 Scan [facility] HEALTH INFO SRVCS Scanned, Doc Med Group 01/25/2025 Travel from Last 3 Months Social History Tobacco Use Types Packs/Day Years Used Date Smoking Tobacco: Former Cigarettes Smokeless Tobacco: Former Tobacco Cessation:Counseling Given: Yes Alcohol Use Standard Drinks/Week Comments Yes 0 (1 standard drink = 0.6 oz pur e alcohol) 2-3 times a year PHQ-2 Answer Date Recorded Patient Health Questionnaire-2 Score 0 04/18/2025 Comments No Sex and Gender Information Value Date Recorded Sex Assigned at Not on file Legal Sex Female 11:13 AM TRANSACTION MANAGER Gender Identity Not on file Sexual Orientation Not on file Last Filed Vital Signs Vital Sign Reading Time Taken Comments Blood Pressure 112/58 04/18/2025 8:35 AM CDT Pulse 70 04/18/2025 8:35 AM CDT Temperature 36.2 C (97.2 F) 04/18/2025 8:35 AM CDT Respiratory Rate 14 04/18/2025 8:35 AM CDT Oxygen Saturation 100% 04/18/2025 8:35 AM CDT Inhaled Oxygen Concentration - - Weight 63 kg (139 lb) 04/18/2025 8:35 AM CDT Height 162.6 cm (5' 4) 04/18/2025 8:35 AM CDT Body Mass Index 23.86 04/18/2025 8:35 AM CDT Plan of Treatment Upcoming Encounters Date Type Department Care Team (Late st Contact Info) Description 08/09/2025 8:20 AM TRANSACTION MANAGER Office Visit [facility] Multispecialty Care - [facility] [address] [facility], [address] [place] [phone] Stephon Tolliver MD [address] [place] [address] Health Maintenance Due Date Last Done Comments [...] 5 season) 2024 12/22/2020, 11/30/2020 PHQ-2 (Physician [place]) Completed 04/18/2025 Meningococcal B Vaccine Aged Out No l onger eligible based on patient's age to complete this topic Meningococcal Vaccine Aged Out No low christie eligible based on patient's age to complete this topic RSV Immunizations Under 20 Months Aged Out No longer eligible b ased on patient's age to complete this topic Insurance [facility] Care Teams Utility Agent Relationship Specialty Start Date End Date Shahram Lott MD [address] [facility] [address] [place] [address] PCP - General FAMILY PRACTICE 10/13/21
--- OUTSIDE RECORDS SUMMARY | 2025-04-24 06:46 | XMS_ITS | Clinical Summary ---
Author Organization [facility] Address [address] [facility] [place] [address] Care Team Providers Care Computer Operations Technician Name Role Phone Shahram Lott MD Primary Care Provider [phone] Source Comments [facility],non-owned Affiliates and Associated Physician Practices is amultiple site organization consisting of ambulatory clinics and hospital sitesin [place], [place], [place] and [place]. This disclosure is being madepursuant to the Care Everywhere program and may not contain all information available regarding this patient. Last updated 18.[facility] Social History Tobacco Use Types Packs/Day Years [...] patient's age to complete this topic Insurance [place] Address: [address] [address] Care Teams Computer Operations Technician Relationship Specialty Start Date End Date Shahram Lott MD [address] [place] [address] PCP - General Family Medicine 12/04/15
--- OUTSIDE RECORDS SUMMARY | 2025-04-24 06:46 | XMS_ITS | Clinical Summary ---
Author Organization [facility] Address [address] [place] [address] Phone Care Team Providers Care Kitchen Hand Name Role Phone Shahram Lott MD Primary Care Provider [phone] Allergies Active Allergy Reactions Criticality Noted Date [...] on file Legal Sex Female 6:11 AM PORTABLE TRACK LINE MARKER Gender Identity Not on file Sexual Orientation Not on file Occupation Industry Job Start Date Job End Date Not on file Not on file Not on file Not on file Last Filed Vital Signs Vital Sign Reading Time Taken Comments Blood Pressure 104/80 02/22/2019 8:54 AM CDT Pulse 70 07/13/2012 11:04 AM PORTABLE TRACK LINE MARKER Temperature - - Respiratory Rate - - Oxygen Saturation - - Inhaled Oxygen Concentration - - Weight 65.8 kg (145 lb) 07/13/2012 11:04 AM PORTABLE TRACK LINE MARKER Height 163.8 cm (5' 4.5) 02/22/2019 8:54 AM CDT Body Mass Index 24.13 07/13/2012 11:04 AM PORTABLE TRACK LINE MARKER Plan of Treatment Health Maintenance Due Date [...] 2) 2022 INFLUENZA VACCINE (#1) 2025 Insurance [facility] Care Teams Kitchen Hand Relationship Specialty Start Date End Date Shahram Lott MD [address] [facility] [address] [facility] [address] [place] [phone] PCP - General Family Practice 01/12/19
--- OUTSIDE RECORDS SUMMARY | 2025-04-24 06:46 | XMS_ITS | Encounter Summary ---
Author Organization [facility] Address [address] [place] [address] Care Team Providers Care Housekeeping Lead Name Role Phone Shahram Lott MD Primary Care Provider [phone] Encounter Details Date Type Department Care Team (Latest Contact Info) Description 04/18/2025 Scan HEALTH INFO SRVCS Scanned, Doc Med Group Social History Tobacco Use Types Packs/Day Years Used Date Smoking Tobacco: Former Cigarettes Smokeless Tobacco: Former Alcohol Use Standard Drinks/Week Comments Yes 0 (1 standard drink = 0.6 oz pur e alcohol) 2-3 times a year PHQ-2 Answer Date Recorded Patient Health Questionnaire-2 Score 0 04/18/2025 Comments No Sex and Gender Information Value Date Recorded Sex Assigned at Not on file Legal Sex Female 11:13 AM AUTO HEADLIGHT MECHANIC Gender Identity Not on file Sexual Orientation Not on file documented as of this encounter Functional Status * Over the past 2 weeks, how often have you been bothered by any of the following problems? Question Answer Date of Assessment Author Status Little interest or pleasure in doing things Not at all 04/18/2025 8:44 AM Shai Ward MA Active Feeling down, depressed, or hopeless Not at all 04/18/2025 8:44 AM Shai Ward MA Activ e Patient Health Questionnaire-2 Score 0 04/18/2025 8:44 AM Shai Ward MA Active documented as of this encounter Plan of Treatment Upcoming Encounters Date Type Department Care Team (Late st Contact Info) Description 08/09/2025 8:20 AM AUTO HEADLIGHT MECHANIC Office Visit [facility] Multispecialty Care - [facility] [address] [facility], [address] [place] [address] Stephon Tolliver MD 3 [place] [address] documented as of this encounter Visit Diagnoses Not on filedocumented in this encounter Care Teams Housekeeping Lead Relationship Specialty Start Date End Date Shahram Lott MD [address] [place] [address] PCP - General FAMILY PRACTICE 10/13/21 documented as of this encounter
--- OUTSIDE RECORDS SUMMARY | 2025-04-24 06:46 | XMS_ITS | Clinical Summary ---
Author Organization [id number] Address [address] [place] [address] Phone Care Team Providers Care Gravity Prospecting Supervisor Name Role Phone Shahram Lott MD Primary Care Provider Marky Hogan MD Unavailable [phone] Allergies Active Allergy Reactions Criticality Noted Date [...] day. Assessment & Plan (07/08/2017 11:29 AM MAGISTRATE): Symptoms greatest in the hands, wrist, feet, [...] on file Legal Sex Female 9:32 AM MAGISTRATE Gender Identity Not on file Sexual Orientation Not on file Obstetrics History Last Filed Vital Signs Vital Sign Reading Time Taken Comments Blood Pressure 111/59 04/18/2021 11:05 AM CDT Pulse 75 04/18/2021 11:05 AM CDT Temperature - - Respiratory Rate - - Oxygen Saturation - - Inhaled Oxygen Concentration - - Weight 78.5 kg (173 lb) 07/08/2017 11:09 AM MAGISTRATE Height 162.6 cm (5' 4) 04/18/2021 11:05 AM CDT Body Mass Index 29.7 07/08/2017 11:09 AM MAGISTRATE Plan of Treatment Not on file Insurance [facility] CLAIMS Care Teams Gravity Prospecting Supervisor Relationship Specialty Start Date End Date Shahram Lott MD [address] [place] [id number] PCP - General 01/09/16 Marky Hogan MD [address] [place] [address] [facility] 07/06/17
--- OUTSIDE RECORDS SUMMARY | 2025-04-24 06:46 | XMS_ITS | Patient Health Record ---
Author Organization [facility] [employer] Address [address] [facility] [address] [place] [address] Care Team Providers Care Hazardous Waste Remover Name Role Phone Glen Vega Unavailable [phone] Reason For Referral No Information Plan Of Treatment No Information
[2025-04-24 06:50] VITALS: BP 120/68; PULSE 72; RESP 18; TEMP 36.9; O2SAT 100
--- OUTSIDE RECORDS SUMMARY | 2025-04-24 07:29 | XMS_ITS | Clinical Summary ---
Author Organization [facility] Address [address] [place] [address] Phone Care Team Providers Care Last Trimmer Name Role Phone Shahram Lott MD Primary Care Provider [phone] Allergies Active Allergy Reactions Criticality Noted Date [...] on file Legal Sex Female 6:11 AM TRANSPORTATION REFRIGERATION TECHNICIAN Gender Identity Not on file Sexual Orientation Not on file Occupation Industry Job Start Date Job End Date Not on file Not on file Not on file Not on file Last Filed Vital Signs Vital Sign Reading Time Taken Comments Blood Pressure 104/80 02/22/2019 8:54 AM CDT Pulse 70 07/13/2012 11:04 AM TRANSPORTATION REFRIGERATION TECHNICIAN Temperature - - Respiratory Rate - - Oxygen Saturation - - Inhaled Oxygen Concentration - - Weight 65.8 kg (145 lb) 07/13/2012 11:04 AM TRANSPORTATION REFRIGERATION TECHNICIAN Height 163.8 cm (5' 4.5) 02/22/2019 8:54 AM CDT Body Mass Index 24.13 07/13/2012 11:04 AM TRANSPORTATION REFRIGERATION TECHNICIAN Plan of Treatment Health Maintenance Due Date [...] 2) 2022 INFLUENZA VACCINE (#1) 2025 Insurance [facility] Care Teams Last Trimmer Relationship Specialty Start Date End Date Shahram Lott MD [address] [facility] [address] [facility] [address] [place] [phone] PCP - General Family Practice 01/12/19
--- OUTSIDE RECORDS SUMMARY | 2025-04-24 07:29 | XMS_ITS | Clinical Summary ---
Author Organization [id number] Address [address] [place] [address] Phone Care Team Providers Care Clinical Nurse Leader Name Role Phone Shahram Lott MD Primary Care Provider Marky Hogan MD Unavailable [phone] Allergies Active Allergy Reactions Criticality Noted Date [...] day. Assessment & Plan (07/08/2017 11:29 AM BLOWER BLAST FURNACE): Symptoms greatest in the hands, wrist, feet, [...] on file Legal Sex Female 9:32 AM BLOWER BLAST FURNACE Gender Identity Not on file Sexual Orientation Not on file Obstetrics History Last Filed Vital Signs Vital Sign Reading Time Taken Comments Blood Pressure 111/59 04/18/2021 11:05 AM CDT Pulse 75 04/18/2021 11:05 AM CDT Temperature - - Respiratory Rate - - Oxygen Saturation - - Inhaled Oxygen Concentration - - Weight 78.5 kg (173 lb) 07/08/2017 11:09 AM BLOWER BLAST FURNACE Height 162.6 cm (5' 4) 04/18/2021 11:05 AM CDT Body Mass Index 29.7 07/08/2017 11:09 AM BLOWER BLAST FURNACE Plan of Treatment Not on file Insurance [facility] CLAIMS Care Teams Clinical Nurse Leader Relationship Specialty Start Date End Date Shahram Lott MD [address] [place] [id number] PCP - General 01/09/16 Marky Hogan MD [address] [place] [address] [facility] 07/06/17
--- OUTSIDE RECORDS SUMMARY | 2025-04-24 07:29 | XMS_ITS | Clinical Summary ---
Author Organization [facility] [employer] Address [address] [place] [address] Care Team Providers Care Quantitative Researcher Name Role Phone Shahram Lott MD Primary Care Provider [phone] Source Comments [facility],non-owned Affiliates and Associated Physician Practices is amultiple site organization consisting of ambulatory clinics and hospital sitesin [place], [place], [place]. This disclosure is being madepursuant to the Care Everywhere program and may not contain all information available regarding this patient. Last updated 18.[facility] [employer] Social History Tobacco Use Types Packs/Day Years [...] patient's age to complete this topic Insurance [facility] Address: [address] [address] Care Teams Quantitative Researcher Relationship Specialty Start Date End Date Shahram Lott MD [address] [place] [address] PCP - General Family Medicine 12/04/15
--- OUTSIDE RECORDS SUMMARY | 2025-04-24 07:29 | XMS_ITS | Encounter Summary ---
Author Organization [facility] Address [address] [place] [address] Care Team Providers Care Sample Collector Name Role Phone Shahram Lott MD Primary Care Provider [phone] Encounter Details Date Type Department Care Team [...] on file Legal Sex Female 11:13 AM TICKET COLLECTOR Gender Identity Not on file Sexual Orientation [...] st Contact Info) Description 08/09/2025 8:20 AM TICKET COLLECTOR Office Visit [facility] Mult[facility]pecialty Care - [facility] [address] [facility], [address] [place] [address] Stephon Tolliver MD 3 [place] [address] documented as of this encounter Visit Diagnoses Not on filedocumented in this encounter Care Teams Sample Collector Relationship Specialty Start Date End Date Shahram Lott MD [address] [place] [address] PCP - General FAMILY PRACTICE 10/13/21 documented as of this encounter
--- OUTSIDE RECORDS SUMMARY | 2025-04-24 07:29 | XMS_ITS | Clinical Summary ---
Author Organization [facility] Address [facility] [place] [address] Care Team Providers Care Plant Equipment Engineer Name Role Phone Shahram Lott MD Primary Care Provider [phone] Allergies Active Allergy Reactions Criticality Noted Date [...] will call in script. F/u prn. Asthma ([facility]) 12/04/2015 Overview (01/26/2024): Asthma Endometriosis 12/04/2015 Overview (01/26/2024): Endometriosis Encounters Date Type Department Care Team Description 04/18/2025 8:40 AM CDT Office Visit [facility] Multispecialty [facility] [address] [facility], [address] [place] [address] Stephon Tolliver MD Botox Procedure (Chronic migraines) 04/18/2025 Scan [facility] INFO SRVCS Scanned, Doc [facility] 04/18/2025 Travel 04/02/2025 Orders Only [facility] Multispecialty Care - [address], [address] [place] [address] Shai Ortiz MA 03/29/2025 Telephone [facility] - [address] [place] [address] Stephon Tolliver MD Medication 01/25/2025 8:00 AM CDT [facility] [address], [address] [place] [address] Stephon Tolliver MD Botox (Migraine 155units) 01/25/2025 [...] on file Legal Sex Female 11:13 AM SOAKING PIT OPERATOR Gender Identity Not on file Sexual [...] st Contact Info) Description 08/09/2025 8:20 AM SOAKING PIT OPERATOR Office Visit [facility] Multispecialty Care - [facility] [address] [facility], [address] [place] [id number] Stephon Tolliver MD 3 [place] [address] Health Maintenance Due Date Last Done Comments [...] 5 season) 2024 12/22/2020, 11/30/2020 PHQ-2 (Physician [place]) Completed 04/18/2025 Meningococcal B Vaccine Aged Out No l onger eligible based on patient's age to complete this topic Meningococcal Vaccine Aged Out No low christie eligible based on patient's age to complete this topic RSV Immunizations Under 20 Months Aged Out No longer eligible b ased on patient's age to complete this topic Insurance [facility] Care Teams Plant Equipment Engineer Relationship Specialty Start Date End Date Shahram Lott MD [address] [facility] [address] [place] [address] PCP - General FAMILY PRACTICE 10/13/21
--- NOTE | 2025-04-24 07:31 | ED.SKABFB ---
HPI - Skin/Abscess/Foreign Bdy General Chief complaint: Skin/Abscess/Foreign Body Stated complaint: attacked by wasps or yellow jackets, swelling Time Seen by Provider: 04/24/25 07:03 History of Present Illness HPI narrative: This is a 54-year-old female with history of asthma who presents to the ED for wasp sting/cellulitis. Patient states that a couple days ago, she was gardening when she was attacked by hornets. She was stung multiple places to left, right, and right thumb. She has had worsening swelling since then. She states she was seen her PCP is 0 some mildly increased swelling to the right thumb. She states this morning when she woke up, the swelling was worse and was more warm. Denies numbness, tingling, fevers, chills. Related Data Home Medications ?Medication ?Instructions ?Recorded ?Confirmed ?Last Taken ?Type onabotulinumtoxinA 100 unit See Rx Instructions .Route .COMPLEX 07/05/23 04/23/25 Unknown History solution for injection (Botox) valacyclovir 500 mg tablet 500 mg PO DAILY 02/26/25 04/23/25 Unknown History Allergies Allergy/AdvReac Type Severity Reaction Status Date / Time Penicillins Allergy Mild Rash Verified 04/23/25 16:33 sulfamethoxazole (From Allergy Mild Rash Verified 04/23/25 16:33 Bactrim) trimethoprim (From Bactrim) Allergy Mild Rash Verified 04/23/25 16:33 penicillin V Allergy Unknown Rash Verified 04/23/25 16:33 Review of Systems Review of Systems: Gen.: Denies fevers or chills Eyes: Denies eye pain or visual change ENT: Denies congestion Respiratory: Denies shortness of breath or cough CV: Denies chest pain or palpitations GI: Denies abdominal pain nausea, emesis or diarrhea denies burning, urgency, frequency or hematuria Musculoskeletal: Denies back pain or muscle pain Neuro: Denies numbness, tingling, weakness or focal weakness Skin: As per HPI Except as documented, all other systems reviewed and negative PMFSH Past Medical History Medical History Chronic constipation Overweight (Unknown) Chronic insomnia Degenerative joint disease of cervical and lumbar spine Inflammatory arthritis Kidney stone Adenomatous colon polyp Colon cancer screening Eczema History of colonic polyps Allergic rhinitis Bilateral knee pain Seronegative rheumatoid arthritis Asthma Migraine Surgical History Surgical History History of hysterectomy Social History Social History Social History: Years smoked: 5 Smoking status: Former smoker Tobacco type: cigarettes Second hand tobacco smoke exposure: No Smoking end date: 08/30/11 Alcohol intake: current Alcohol use details: yearly Substance use: never Substance use type: does not use Do You Feel Safe in your Home?: Yes Lack of Transportation: No Lack of Food: Never True Current Housing: I Have Housing Concerned About Future Housing: No Difficulty Paying Gas/Electric Bills: No Difficulty Paying for Meds: No Currently Unemployed: No Education: Bachelor's Degree Difficulty w/ Childcare or Family Care: No Living arrangements: other Additional living arrangements comments: with Occupation/Education: occupation Gender identity (if verbalized by the patient): Female Sexual Orientation (if Verbalized by the Patient): Straight or Heterosexual Spiritual care concerns: No Exam Narrative: APPEARANCE: No acute distress, nontoxic, resting in bed HEENT: Normocephalic, atraumatic, OMM RESPIRATORY: No respiratory distress CARDIOVASCULAR: Appears well perfused ABDOMINAL: Nondistended MUSCULOSKELETAl: Moves all extremities. No obvious deformities NEURO: Awake and alert. SKIN:: Mild erythema over the right thumb with mildly decreased range of motion due to swelling. Normal sensation. There to large areas of erythema to the left thigh and right thigh approximately 4 x 4 cm PSYCHIATRIC: Normal affect/mood, Course Vital Signs Vital signs: Vital Signs Temperature 98.4 F 04/24/25 06:50 Pulse Rate 72 04/24/25 06:50 Respiratory Rate 18 04/24/25 06:50 Blood Pressure 120/68 04/24/25 06:50 Pulse Oximetry 100 04/24/25 06:50 Oxygen Delivery Room Air 04/24/25 06:50 Temperature 98.4 F 04/24/25 06:50 Pulse Rate 72 04/24/25 06:50 Respiratory Rate 18 04/24/25 06:50 Blood Pressure 120/68 04/24/25 06:50 Pulse Oximetry 100 04/24/25 06:50 Oxygen Delivery Room Air 04/24/25 06:50 MDM - Skin/Abscess/Foreign Bdy MDM Narrative Medical decision making narrative: 54-year-old female who presented to the ED for right thumb pain and multiple wasp stings. On initial evaluation completion was no acute distress and afebrile, hemodynamically stable. She did have mild erythema over the right thumb. Symptoms are likely consistent with a developing cellulitis. No concerns for tenosynovitis at this time. Patient will be started on antibiotic. She was advised follow-up with PCP next week for evaluation. Patient was agreeable to this plan. Given strict return precautions. Medical Records Attestation: I reviewed the patient's medical records. Discharge Plan Discharge Clinical Impression: Hornet sting Qualifiers: Encounter type: initial encounter Injury intent: accidental or unintentional Qualified Code(s): T63.451A - Toxic effect of venom of hornets, accidental (unintentional), initial encounter Cellulitis Qualifiers: Site of cellulitis: extremity Site of cellulitis of extremity: finger Laterality: right Qualified Code(s): L03.011 - Cellulitis of right finger Patient Disposition: Home Condition: Stable Instructions: Antibiotic Form, Cellulitis (ED) Additional Instructions: Take Keflex as prescribed. Apply ice to the areas 15 minutes on 15 minutes off for swelling. Follow up with the PCP in the next week for evaluation. Return to the ED for any new or worsening symptoms. Patient Language: [place] Prescriptions: New cephalexin 500 mg capsule 500 mg PO Q6H 7 Days Qty: 28 0RF No Action Nurtec ODT 75 mg tablet,disintegrating 75 mg PO ONCE PRN (Reason: migraine headache) Qty: 16 0RF Rx Instructions: as a single dose phenazopyridine 200 mg tablet 200 mg PO Q8H PRN (Reason: .cystitis) Qty: 30 1RF Rx Instructions: takes PRN for interstitial cystitis valacyclovir 500 mg tablet 500 mg PO DAILY cefdinir 300 mg capsule 300 mg PO Q12H Qty: 14 0RF Botox 100 unit Recon Soln See Rx Instructions .ROUTE .COMPLEX Rx Instructions: Q Month for migraines bisacodyl 5 mg tablet 5 mg PO DAILY PRN (Reason: constipation) Qty: 30 0RF omeprazole 40 mg capsule,delayed release(DR/EC) 40 mg PO DAILY Qty: 90 3RF albuterol sulfate 90 mcg/actuation HFA aerosol inhaler 2 inh INHALATION Q4-6H PRN (Reason: shortness of breath or wheezing) Qty: 8.5 2RF tirzepatide (weight loss) 10 mg/0.5 mL pen injector 10 mg subcut WEEKLY Qty: 2 5RF Rx Instructions: for 4 weeks Follow-up/Referrals: Shahram Lott MD [Primary Care Provider, Family Practice] Stand Alone Forms: Work/School Release IP
== END 2025-04-24 07:54 | disposition home or self-care (01) ==
PROVIDERS: Emergency Provider Student in an Organized Health Care Education/Training Program; PCP Family Medicine
DX: T63.451A Toxic effect of venom of hornets, accidental (unintentional), initial encounter (principal); L03.311 Cellulitis of abdominal wall; Z87.442 Personal history of urinary calculi; J45.909 Unspecified asthma, uncomplicated
CPT/HCPCS: 99283

== ENCOUNTER 2025-08-03 07:53 | Outpatient (CLI) | payer OTHER, SELFPAY ==
--- NOTE | ~2025-08-03 | CT_ITS ---
EXAM/PROCEDURE: CT soft tissue neck wo/w con HISTORY: foreign body sensation COMPARISON: September 17, 2017 C-spine TECHNIQUE: IV contrast-enhanced soft tissue neck CT FINDINGS: No discrete lesion or mass seen. No radiopaque foreign object identified. The parapharyngeal, retropharyngeal, and carotid spaces appear symmetric. Fossa Rosenmuller are symmetric. Scattered nonpathologic sized bilateral jugulodigastric, posterior triangle, and sternocleidomastoid as well as submandibular lymph nodes noted. The bones appear intact. Evaluation of dental structures limited by extensive amalgam and artifact. No acute process seen in the visualized intracranial contents or visualized portions of the upper chest. Thyroid appears normal as do the vocal cords. IMPRESSION: No discrete lesion or foreign body seen to explain source of patient's symptoms. Consider correlation with direct visualization/endoscopic evaluation as clinically appropriate. Reviewed, dictated and finalized at location A. N SUPERVISOR IMPRESSION: No discrete lesion or foreign body seen to explain source of patien t's symptoms. Consider correlation with direct visualization/endoscopic evaluat ion as clinically appropriate.
== END 2025-08-03 07:54 | disposition home or self-care (01) ==
PROVIDERS: PCP Family Medicine; Visit Provider Internal Medicine Gastroenterology
DX: R09.A2 Foreign body sensation, throat (principal)
CPT/HCPCS: 70492; Q9967

== ENCOUNTER 2025-08-20 13:46 | Outpatient (CLI) | payer OTHER, SELFPAY ==
--- NOTE | ~2025-08-20 | DEXA_ITS ---
Bone Density Report Name: JAYESH CANNON Age: 55 Sex: Female Ethnicity: White Date of : 1970 Indication: postmenopausal; screening for osteoporosis; height loss; anorexia or bulimia; hysterectomy; Referring Provider: RORY, MICHAEL Freedman Study: Bone densitometry was performed. Exam Date: August 20, 2025 Accession number: [id number] Bone Density: Region BMD T-score Z-score Classification AP Spine(L1-L4) 0.737 -2.8 -1.9 Osteoporosis Femoral Neck (Left) 0.588 -2.4 -1.4 Osteopenia Total Hip (Left) 0.732 -1.7 -1.1 Osteopenia Femoral Neck (Right) 0.586 -2.4 -1.4 Osteopenia Total Hip (Right) 0.716 -1.9 -1.3 Osteopenia Total Hip Mean 0.724 -1.8 -1.2 Osteopenia World Health Organization criteria for BMD impression classify patients as: Normal (T-score at or above -1.0), Osteopenia (T-score between -1.0 and -2.5), or Osteoporosis (T-score at or below -2.5). 10-year Fracture Risk: FRAX not reported because: Some T-score for Spine Total or Hip Total or Femoral Neck at or below -2.5 Clinical Information Provided by Patient: Has used the following medications: Vitamin D, Calcium Has the following medical conditions: Anorexia or Bulimia, Hysterectomy Patient maximum height was 64.75 Menopause Age: 42 No regular weight bearing exercise Does not regularly consume dairy products Drinks caffeinated beverages Onset of menses at age 15 Number of children 0 Impression: The patient has osteoporosis, based on the Total Spine T-score. Discussion: INCREASED RISK OF FRACTURE. BONE DENSITY IS UNDESIRABLY LOW AT ONE OR MORE SKELETAL SITES, CONSISTENT WITH POSTMENOPAUSAL OSTEOPOROSIS. This patient's lowest T-score meets the World Health Organization's (WHO) criteria for osteoporosis at one or more sites (T-score -2.5 or below). In untreated patients, the risk of osteoporotic fracture increases approximately two-fold for each 1.0 SD decrease in T-score. Low bone density is not the only risk factor for fracture; also consider factors such as patient's age, frailty or poor health, risk of falling, risk of injury, previous osteoporotic fracture, family history of osteoporosis, cigarette smoking, low body weight, etc. Not everyone with low bone mineral density has osteoporosis; osteomalacia and other metabolic bone disorders should also be considered. Patients who have osteoporosis should be evaluated for specific diseases and conditions (secondary causes) that may cause or contribute to bone loss. The [place] Association of Clinical Endocrinologists (AACE) and National Osteoporosis Foundation (NOF) recommend pharmacologic intervention for all postmenopausal women whose T-score is in this range. The patient should follow a healthful lifestyle (good nutrition with adequate calcium and vitamin D, and appropriate weight-bearing exercise). Follow-Up: Consider a repeat BMD and Vertebral Fracture Assessment (VFA) exam in 2 years or sooner if medically necessary, to reassess this patient's status. Reported by: JADIEL on 08/20/2025 2:51:00 PM. Reviewed, dictated and finalized at location A.
--- OUTSIDE RECORDS SUMMARY | 2025-08-20 15:33 | XMS_ITS | Clinical Summary ---
Author Organization [facility] [employer] Address [address] [place] [address] Care Team Providers Care Cvicu Rn Name Role Phone Shahram Lott MD Primary Care Provider [phone] Source Comments [facility],non-owned Affiliates and Associated Physician Practices is amultiple site organization consisting of ambulatory clinics and hospital sitesin [place], [place], [place] and [place]. This disclosure is being madepursuant to the Care Everywhere program and may not contain all information available regarding this patient. Last updated 18.[facility] [employer] Social History Tobacco Use Types Packs/Day Years [...] 2022 ZOSTER VACCINE (1 of 2) 2022 DEPRESSION SCREENING 08/30/2024 COVID-19 VACCINE (1 - 2024-2 6 season) 2025 INFLUENZA VACCINE (#1) 2025 HIB VACCINE Aged [...] patient's age to complete this topic Insurance [facility] Address: [address] [address] Care Teams Cvicu Rn Relationship Specialty Start Date End Date Shahram Lott MD [address] [place] [address] PCP - General Family Medicine 12/04/15
--- OUTSIDE RECORDS SUMMARY | 2025-08-20 15:33 | XMS_ITS | Clinical Summary ---
Author Organization [facility] Address [address] [place] [address] Phone Care Team Providers Care Medical Director/Head Team Physician Name Role Phone Shahram Lott MD Primary Care Provider [phone] Allergies Active Allergy Reactions Criticality Noted Date [...] on file Legal Sex Female 6:11 AM LICENSED APPRAISER Gender Identity Not on file Sexual Orientation Not on file Occupation Industry Job Start Date Job End Date Not on file Not on file Not on file Not on file Last Filed Vital Signs Vital Sign Reading Time Taken Comments Blood Pressure 104/80 02/22/2019 8:54 AM CDT Pulse 70 07/13/2012 11:04 AM LICENSED APPRAISER Temperature - - Respiratory Rate - - Oxygen Saturation - - Inhaled Oxygen Concentration - - Weight 65.8 kg (145 lb) 07/13/2012 11:04 AM LICENSED APPRAISER Height 163.8 cm (5' 4.5) 02/22/2019 8:54 AM CDT Body Mass Index 24.13 07/13/2012 11:04 AM LICENSED APPRAISER Plan of Treatment Health Maintenance Due Date [...] 2) 2022 INFLUENZA VACCINE (#1) 2025 Insurance [facility] Care Teams Medical Director/Head Team Physician Relationship Specialty Start Date End Date Shahram Lott MD [address] [facility] [address] [facility] [address] [place] [address] PCP - General Family Practice 01/12/19
--- OUTSIDE RECORDS SUMMARY | 2025-08-20 15:33 | XMS_ITS | Clinical Summary ---
Author Organization [id number] Address [address] [place] [id number] Phone Care Team Providers Care Central Supply Clerk Name Role Phone Shahram Lott MD Primary Care Provider Marky Hogan MD Unavailable Allergies Active Allergy Reactions Criticality Noted Date [...] day. Assessment & Plan (07/08/2017 11:29 AM GRIP BOSS): Symptoms greatest in the hands, wrist, feet, [...] on file Legal Sex Female 9:32 AM GRIP BOSS Gender Identity Not on file Sexual Orientation Not on file Last Filed Vital Signs Vital Sign Reading Time Taken Comments Blood Pressure 111/59 04/18/2021 11:05 AM CDT Pulse 75 04/18/2021 11:05 AM CDT Temperature - - Respiratory Rate - - Oxygen Saturation - - Inhaled Oxygen Concentration - - Weight 78.5 kg (173 lb) 07/08/2017 11:09 AM GRIP BOSS Height 162.6 cm (5' 4) 04/18/2021 11:05 AM CDT Body Mass Index 29.7 07/08/2017 11:09 AM GRIP BOSS Plan of Treatment Not on file Insurance [facility] CLAIMS Care Teams Central Supply Clerk Relationship Specialty Start Date End Date Shahram Lott MD [address] [place] [address] PCP - General 01/09/16 Marky Hogan MD [address] [place] [address] Rheumatology 07/06/17
--- OUTSIDE RECORDS SUMMARY | 2025-08-20 15:33 | XMS_ITS | Clinical Summary ---
Author Organization [facility] Address [facility] [place] [address] Care Team Providers Care Detailer School Photographs Name Role Phone Shahram Lott MD Primary Care Provider [phone] Allergies Active Allergy Reactions Criticality Noted Date Comments Penicillins Rash Low 06/08/2012 Medications Acetaminophen-Bernice abrom 325-25 MG Tab Active Calcium Carb-Cholecalcife rol (CALCIUM CARBONATE-VITAMIN D3) 600-400 MG-UNIT Tab Active BISACODYL OR Active Multiple Vitamin (MULTIVITAMIN ADULT OR) Active phenazopyridine 100 MG tablet Take 1 tablet (100 mg total) by mouth daily as needed. Active betamethasone dipropionate, augmented, (DIPROLENE) 0.05 % lotion 023 Active rimegepant (NURTEC) 75 MG disintegrating tabletIndications :Migraine without aura, not intractable, without status migrainosus Take 1 tablet (75 mg total) by mouth once as needed for Migraine. Max of 1 tablet (75 mg) in 24 hours. 16 tablet 5 025 Active ZEPBOUND 10 MG/0.5ML injection Inject 10 mg into the skin once a week. 025 Active omeprazole (PRILOSEC) 40 MG capsule Take 1 capsule (40 mg total) by mouth as needed. 025 Active atogepant (QULIPTA) tabletIndications :Chronic migraine without aura without status migrainosus, not intractable Take 1 tablet (60 mg total) by mouth daily. 30 tablet 11 Active Additional Information Patient not taking.Reported on 08/09/2025 OPZELURA 1.5 % Cream Active albuterol sulfate HFA 108 (90 Base) MCG/ACT inhaler Inhale 1 puff into the lungs as needed. Active Galcanezumab-gnlm (EMGALITY) 120 MG/ML Solution Auto-injectorIndi cations:Chronic migraine w/o aura w/o status migrainosus, not intractable Inject 120 mg into the skin every 30 (thirty) days. 1 Pen 6 Active erenumab-aooe (AIMOVIG) 70 mg/mL injection (autoinjector)Ind ications:Chronic migraine without aura without status migrainosus, not intractable Inject 1 mL (70 mg total) into the skin every 30 (thirty) days. 1 mL 6 2024 Discontinued Active Problems Problem Noted Date Diagnosed Date Chronic migraine without aur a without status migrainosus, not intractable 10/26/2022 Numbness and tingling of right hand [...] will call in script. F/u prn. Asthma 12/04/2015 Overview (01/26/2024): Asthma Endometriosis 12/04/2015 Overview (01/26/2024): Endometriosis Encounters Date Type Department Care Team Description 08/14/2025 Orders Only [facility] - [address], [address] [place] [address] Stephon Tolliver MD 08/09/2025 8:20 AM NURSE EXTERN Office Visit [facility] - [address], [address] [place] [address] Stephon Tolliver MD Botox Procedure (Chronic migraine) 08/09/2025 Scan [facility] INFO SRVCS Scanned, Doc [facility] 08/09/2025 Travel from Last 3 Months Social History Tobacco Use Types Packs/Day Years Used Date Smoking Tobacco: Former Cigarettes Smokeless Tobacco: Former Tobacco Cessation:Counseling Given: Not Answered Alcohol Use Standard Drinks/Week Comments Yes 0 (1 standard drink = 0.6 oz pur e alcohol) 2-3 times a year PHQ-2 Answer Date Recorded Patient Health Questionnaire-2 Score 0 04/18/2025 Comments No Sex and Gender Information Value Date Recorded Sex Assigned at Female 04/27/2025 12:59 PM CDT Legal Sex Female 11:13 AM NURSE EXTERN Gender Identity Not on file Sexual Orientation Not on file Last Filed Vital Signs Vital Sign Reading Time Taken Comments Blood Pressure 120/68 08/09/2025 8:36 AM NURSE EXTERN Pulse 68 08/09/2025 8:36 AM NURSE EXTERN Temperature 35.6 C (96.1 F) 08/09/2025 8:36 AM NURSE EXTERN Respiratory Rate 14 08/09/2025 8:36 AM NURSE EXTERN Oxygen Saturation 100% 08/09/2025 8:36 AM NURSE EXTERN Inhaled Oxygen Concentration - - Weight 62.1 kg (137 lb) 08/09/2025 8:36 AM NURSE EXTERN Height 162.6 cm (5' 4) 08/09/2025 8:36 AM NURSE EXTERN Body Mass Index 23.52 08/09/2025 8:36 AM NURSE EXTERN Plan of Treatment Upcoming Encounters Date Type Department Care Team (Late st Contact Info) Description 11/08/2025 8:20 AM CDT Office Visit [facility] Multispecialty Care - [facility] [address] [facility], [address] [place] [id number] Stephon Tolliver MD [address] [place] [address] Health Maintenance Due Date Last Done Comments [...] of 2) 2022 COVID-19 Vaccine (3 - 2024-2 6 season) 2025 12/22/2020, 11/30/2020 Influenza Adult (#1) 2025 PHQ-2 (Physician [place]) Completed 04/18/2025 Hepatitis A Vaccines Aged Out No long er eligible based on patient's age to complete this topic Meningococcal B Vaccine Aged Out No l onger eligible based on patient's age to complete this topic Meningococcal Vaccine Aged Out No low christie eligible based on patient's age to complete this topic RSV Immunizations Under 20 Months Aged Out No longer eligible b ased on patient's age to complete this topic Insurance Care Teams Detailer School Photographs Relationship Specialty Start Date End Date Shahram Lott MD [address] [facility] [address] [place] [address] PCP - General FAMILY PRACTICE 10/13/21
== END 2025-08-20 13:47 | disposition home or self-care (01) ==
PROVIDERS: PCP Family Medicine
DX: Z78.0 Asymptomatic menopausal state (principal); Z13.820 Encounter for screening for osteoporosis; M81.0 Age-related osteoporosis without current pathological fracture; M85.852 Other specified disorders of bone density and structure, left thigh; M85.851 Other specified disorders of bone density and structure, right thigh
CPT/HCPCS: 77080